=== PATIENT | male | born 1930 | race Caucasian/White ===

== ENCOUNTER → 2017-08-01 | Outpatient (CLI) | payer MEDICARE ==
[2015-01-30 23:50] VITALS: BP 158/84
[~2017-08-01] MED LIST: ALBU8.5H8 INH; ASPI-482 PO; CINN1CAP2 PO; CLOP75TA PO; CYCL-331 PO; HYDR-2762 PO; IOHEXOL 300 MG/ML 75 ML VIAL. IV ONE; LISI-334 PO; METO25TA2 PO; MULT1TAB52 PO; OMEG10006 PO; OMEP40CA5 PO; TAMS0.4C2 PO; WARF-31 PO
--- NOTE | 2017-08-01 17:03 | RAD ---
PQRS Compliance Statement: One or more of the following individualized dose reduction techniques were utilized for this examination: 1. Automated exposure control 2. Adjustment of the mA and/or kV according to patient size 3. Use of iterative reconstruction technique CT HEAD WITHOUT CONTRAST History: CHRONIC HEADACHE WITH PRESSURE, HX OF STROKE< Comparison: CT head without contrast, March 11, 2012. Technique: Axial images are obtained of the head from the skull base through the vertex before and after 75 cc of Omnipaque 300 IV contrast. Findings: No mass-effect, midline shift, extra-axial fluid collection, hemorrhage, or obvious acute infarction is identified. Basilar cisterns are patent. The ventricles and sulci are prominent, consistent with age-related cerebral atrophy. There is periventricular white matter hypoattenuation. This is a nonspecific finding but is commonly due to chronic small vessel ischemic disease. No abnormal enhancement in the brain parenchyma is seen. Atherosclerotic calcification of the cavernous internal carotid arteries bilaterally. Bone windows demonstrate no acute calvarial abnormality. The visualized paranasal sinuses are clear. Mastoid air cells are well aerated. IMPRESSION: 1. No acute intracranial abnormality. 2. Age-related cerebral atrophy and periventricular white matter changes of chronic small vessel ischemic disease. Electronically signed by: Brandon Vazquez MD (08/01/2017 4:59 PM) [id number]
== END | disposition home or self-care (01) ==
LOC: CT 08:16
PROVIDERS: ATTEND Internal Medicine
DX: G31.89 Other specified degenerative diseases of nervous system (principal); M54.2 Cervicalgia; I10 Essential (primary) hypertension; Z79.01 Long term (current) use of anticoagulants
CPT/HCPCS: 36415; 70470; 82565; 84520; Q9967

== ENCOUNTER → 2017-08-25 | Outpatient (CLI) | payer MEDICARE ==
[2015-01-30 23:50] VITALS: BP 158/84
[~2017-08-25] MED LIST changes: -IOHEXOL 300 MG/ML 75 ML VIAL. IV ONE
--- NOTE | 2017-08-25 11:31 | RAD ---
Indication: Headache and neck pain. Technique: Axial images and coronal and sagittal reformatted images are provided. No comparison is available. One or more of the following individualized dose reduction techniques were utilized for this examination: 1. Automated exposure control 2. Adjustment of the mA and/or kV according to patient size 3. Use of iterative reconstruction technique Findings: There is anterolisthesis at C4-C5 measuring 2 mm. There is otherwise no malalignment. There is no fracture. Craniovertebral junction is unremarkable. There are degenerative changes in the articulation between the C1 ring and dens with a few erosions in the dens noted as well. There is pannus along the dens. There are carotid artery calcifications. There are subcentimeter presumed reactive lymph nodes along the cervical chains. Pacemaker is noted. Lung apices are clear. Canal and foraminal contents could be better evaluated by postmyelogram CT, they will be estimated below: C2-C3: Facet hypertrophy and uncinate process spurring are noted with moderate to severe left and [id number] right foraminal narrowing. C3-C4: Disc osteophyte complex and uncinate process spurring are noted along with buckling of ligamentum flavum and facet hypertrophy. There is at least mild canal stenosis. There is probably moderate foraminal narrowing. C4-C5: There is a disc osteophyte complex, uncinate process spurring, buckling of ligamentum flavum, and facet hypertrophy. Facet hypertrophy is greater on the right. There is probably mild canal stenosis. There is at least mild left and moderate right foraminal narrowing. C5-C6: There is a disc osteophyte complex and uncinate process spurring. There is facet hypertrophy which is greater on the left. There is no canal stenosis. There is probably moderate foraminal narrowing bilaterally. C6-C7: There is a disc osteophyte complex and uncinate process spurring. There is at least mild to moderate bilateral foraminal narrowing and there is likely effacement of the ventral CSF column, there may be mild canal stenosis. C7-T1: There is no high-grade canal or foraminal compromise. IMPRESSION: There are degenerative changes noted throughout the cervical spine with several levels of canal and foraminal compromise suspected, with estimates provided above. If further workup is required, consider post myelogram CT in this patient with pacemaker. Electronically signed by: Orestes Lopez MD (08/25/2017 11:27 AM) [id number]
== END | disposition home or self-care (01) ==
LOC: CT 10:43
PROVIDERS: ATTEND Internal Medicine
DX: M48.02 Spinal stenosis, cervical region (principal); M25.78 Osteophyte, vertebrae; I10 Essential (primary) hypertension; Z79.01 Long term (current) use of anticoagulants; Z95.0 Presence of cardiac pacemaker
CPT/HCPCS: 72125

== ENCOUNTER 2017-12-07 04:29 | Emergency (ER) | payer MEDICARE ==
[~2017-12-07] VITALS: Ht 170.2 cm; Wt 86.8 kg
[2017-12-07] MEDS ORDERED: ONDANSETRON PF 4 MG/2 ML VIAL. ONE (05:11)
[2017-12-07] MEDS ORDERED: ONDANSETRON PF 4 MG/2 ML VIAL. IV ONE (05:30)
[2017-12-07 05:37] LABS: BASO % 1 % (0-3); EOS # 0.2 x10^3/uL (0.0-0.7); EOS % 3 % (0-3); HEMATOCRIT 43.6 % (39.0-53.0); HEMOGLOBIN 14.9 g/dL (13.0-17.5); LYMPH # 1.4 x10^3/uL (1.0-4.8); LYMPH % 27 % (24-48); MEAN CORPUSCULAR HEMOGLOBIN 33 pg (25-35); MEAN CORPUSCULAR HGB CONC 34 g/dL (31-37); MEAN CORPUSCULAR VOLUME 98 fL (79-100); MONO # 0.5 x10^3/uL (0.0-1.1); MONO % 9 % (0-9); NEUT # 3.1 x10^3uL (1.8-7.7); NEUT % 60 % (31-73); PLATELET COUNT 166 x10^3/uL (140-400); RED BLOOD COUNT 4.47 x10^6/uL (4.30-5.70); RED CELL DISTRIBUTION WIDTH 14.2 % (11.5-14.5); WHITE BLOOD COUNT 5.1 x10^3/uL (4.0-11.0)
--- NOTE | 2017-12-07 06:03 | PHYS DOC ---
Past History Past Medical History: A-Fib, GERD, High Cholesterol, Hypertension, Prostatitis Past Surgical History: Knee Replacement Alcohol Use: Occasionally Drug Use: None Adult General Chief Complaint Chief Complaint: MECHANICAL FALL HPI HPI 87-year-old male presents via EMS with report of fall forward striking his head on the door frame while getting up to use the restroom just prior to arrival. Patient does report use of Coumadin. Reports significant swelling to right side of his scalp at site of blunt trauma. Reports pain to area. Denies loss of consciousness. Denies nausea or vomiting. Patient does also report some neck pain. Patient was ambulatory and ended up walking out to the ambulance to meet EMS crew upon their arrival. Denies other injury. Review of Systems Review of Systems Constitutional: Denies fever or chills [] Eyes: Denies change in visual acuity, redness, or eye pain [] HENT: Denies nasal congestion or epistaxis Respiratory: Denies cough or shortness of breath [] Cardiovascular: Denies chest pain or syncope GI: Denies nausea, vomiting Musculoskeletal: Denies back pain or joint pain ; reports neck pain Integument: Denies laceration; reports bruising and swelling Neurologic: Reports headache; denies focal weakness or sensory changes [] Complete systems were reviewed and found to be within normal limits, except as documented in this note. Current Medications Current Medications Current Medications Medications (Trade) Dose Ordered Sig/Shana Start Time Stop Time Status Last Admin Dose Admin Fentanyl Citrate (Fentanyl 2ml Vial) 50 mcg 1X ONCE 12/07/17 05:00 12/07/17 05:01 DC 12/07/17 05:09 50 MCG Ondansetron HCl (Zofran) 4 mg 1X ONCE 12/07/17 05:30 12/07/17 05:31 DC Allergies Allergies Allergies Coded Allergies Type Severity Reaction Last Updated Verified naproxen Allergy Unknown 12/07/17 No influenza virus vaccine, specific Adverse Reaction Intermediate 12/07/17 Yes Physical Exam Physical Exam Constitutional: Well developed, well nourished, no acute distress, non-toxic appearance. [] HENT: Right forehead hematoma noted, no laceration, oropharynx moist Eyes: PERRL, EOMI, conjunctiva normal, no nystagmus Neck: C-collar in place, upper midline tenderness noted, supple Cardiovascular: Heart rate regular rhythm, CR < 2 sec Lungs & Thorax: Bilateral breath sounds clear to auscultation [] Abdomen: Soft, no tenderness, no masses, no pulsatile masses. [] Skin: Warm, dry, no erythema, right forehead swelling/hematoma Back: No midline tenderness, no CVA tenderness. [] Extremities: No tenderness, ROM intact, no edema. [] Neurologic: Alert and oriented X 3, normal motor function, normal sensory function, no focal deficits noted. [] Psychologic: Affect normal, judgement normal, mood normal. [] Current Patient Data Lab Results Laboratory Tests Test 12/07/17 05:15 White Blood Count 5.1 x10^3/uL (4.0-11.0) Red Blood Count 4.47 x10^6/uL (4.30-5.70) Hemoglobin 14.9 g/dL (13.0-17.5) Hematocrit 43.6 % (39.0-53.0) Mean Corpuscular Volume 98 fL (79-100) Mean Corpuscular Hemoglobin 33 pg (25-35) Mean Corpuscular Hemoglobin Concent 34 g/dL (31-37) Red Cell Distribution Width 14.2 % (11.5-14.5) Platelet Count 166 x10^3/uL (140-400) Neutrophils (%) (Auto) 60 % (31-73) Lymphocytes (%) (Auto) 27 % (24-48) Monocytes (%) (Auto) 9 % (0-9) Eosinophils (%) (Auto) 3 % (0-3) Basophils (%) (Auto) 1 % (0-3) Neutrophils # (Auto) 3.1 x10^3uL (1.8-7.7) Lymphocytes # (Auto) 1.4 x10^3/uL (1.0-4.8) Monocytes # (Auto) 0.5 x10^3/uL (0.0-1.1) Eosinophils # (Auto) 0.2 x10^3/uL (0.0-0.7) Basophils # (Auto) 0.0 x10^3/uL (0.0-0.2) Prothrombin Time 36.3 SEC (9.4-11.4) H Prothrombin Time INR 3.9 (0.9-1.1) H PTT 38 SEC (23-33) H EKG EKG [] Radiology/Procedures Radiology/Procedures [PROCEDURE: CT HEAD AND CERVICAL SPINE WO CT head without contrast. CT cervical spine without contrast TECHNIQUE: Noncontrast CT imaging of the head and cervical spine with multiplanar reconstructions. COMPARISON: CT head August 01, [address] cervical spine August 25, 2017. HISTORY: Fall, right scalp hematoma, pain. CT head findings: No intracranial hemorrhage, mass, hydrocephalus or infarction. Generalized brain atrophy is stable. Cerebral white matter hypoattenuation consistent with chronic microvascular ischemic injury, stable. 3 cm in thickness acute hyperdense right frontal parietal scalp hematoma. No skull fracture. Skull base intact. Acute traumatic nasal bone fractures. Small volume of fluid within the right maxillary sinus. Orbits and mastoids are unremarkable. IMPRESSION: No acute intracranial CT abnormality. 3 cm thickness right frontal parietal scalp acute hematoma. No skull fracture. Nasal bone fractures. CT cervical spine findings: Precervical junction intact. There is an acute traumatic nondisplaced transverse oriented type II C2 odontoid fracture. 1 mm anterolisthesis of C2 and C3 associated with disc disease and facet arthritis. No distracted fracture of the cervical spine. The lung apices and paraspinal tissues are unremarkable. Cervical scoliosis, disc height loss with disc osteophytes and uncovertebral and facet spurs with spinal canal and neural foraminal stenoses at several levels. Dorsal paraspinal subcutaneous edema likely contusion. IMPRESSION: Acute traumatic nondisplaced type II C2 odontoid fracture. Cervical disc disease. See discussion above.] Course & Med Decision Making Course & Med Decision Making Pertinent Labs and Imaging studies reviewed. (See chart for details) Elderly patient presents with report of mechanical trip forward striking his forehead with subsequent hematoma. Patient also complains of neck pain. C- collar placed by EMS and maintained. Patient does use Coumadin. INR supratherapeutic at 3.9. H&H stable. Patient neurologically intact. Pain addressed. CT head/cervical spine pending. Sign out given to Dr. Gutierrez for further evaluation and final disposition. Discussed current findings and plan with patient and family, who acknowledge understanding and agreement. 7:00 AM: Patient care was assumed from Dr. Montano. Patient reported a mechanical fall and struck his head and also is having neck pain. CT scan reveals a large epidural hemorrhage, with a type II odontoid fracture. The patient is in a cervical collar, although it did not fit very well. He was changed to a [place] type collar, which is better fitting. I spoke to the trauma surgeon at , Dr. Ricketts, who accepted the patient. He requested that the patient's INR be reversed, although the optimal agent, PCC, is not available at this facility. The reason for reversal to prevent potential development of an epidural hemorrhage associated with the C2 fracture. Due to the delay inherent in obtaining an administering FFP, we discussed that the optimal plan of care for the patient would be to administer vitamin K, 10 mg will be given IV, and the patient will be emergently transferred to the ICU at . I discussed findings with the patient and his family and they are agreeable to transfer. CRITICAL CARE TIME: 45 Minutes, excluding any procedures and care of other patients. Dragon Disclaimer Dragon Disclaimer This electronic medical record was generated, in whole or in part, using a voice recognition dictation system. Departure Departure: Impression: Primary Impression: Odontoid fracture with type II morphology Additional Impressions: Scalp hematoma Supratherapeutic INR Plantar fasciitis Disposition: 02 XFER SHT-TRM HOSP () Condition: GUARDED Referrals: UMBERTO LIANG MD (PCP) Problem Qualifiers Additional Impressions: Scalp hematoma Encounter type: initial encounter Qualified Codes: S00.03XA - Contusion of scalp, initial encounter MARILYN MONTANO DO Dec 07, 2017 06:03 JOSÉ MIGUEL GUTIERREZ MD Dec 07, 2017 07:03
[2017-12-07] MEDS ORDERED: ORPHENADRINE CITRATE 60 MG/2 ML VIAL. IV ONE (06:30)
--- NOTE | 2017-12-07 06:36 | RAD ---
CT head without contrast. CT cervical spine without contrast TECHNIQUE: Noncontrast CT imaging of the head and cervical spine with multiplanar reconstructions. COMPARISON: CT head August 01, [address] cervical spine August 25, 2017. HISTORY: Fall, right scalp hematoma, pain. CT head findings: No intracranial hemorrhage, mass, hydrocephalus or infarction. Generalized brain atrophy is stable. Cerebral white matter hypoattenuation consistent with chronic microvascular ischemic injury, stable. 3 cm in thickness acute hyperdense right frontal parietal scalp hematoma. No skull fracture. Skull base intact. Acute traumatic nasal bone fractures. Small volume of fluid within the right maxillary sinus. Orbits and mastoids are unremarkable. IMPRESSION: No acute intracranial CT abnormality. 3 cm thickness right frontal parietal scalp acute hematoma. No skull fracture. Nasal bone fractures. CT cervical spine findings: Precervical junction intact. There is an acute traumatic nondisplaced transverse oriented type II C2 odontoid fracture. 1 mm anterolisthesis of C2 and C3 associated with disc disease and facet arthritis. No distracted fracture of the cervical spine. The lung apices and paraspinal tissues are unremarkable. Cervical scoliosis, disc height loss with disc osteophytes and uncovertebral and facet spurs with spinal canal and neural foraminal stenoses at several levels. Dorsal paraspinal subcutaneous edema likely contusion. IMPRESSION: Acute traumatic nondisplaced type II C2 odontoid fracture. Cervical disc disease. See discussion above. Critical results called to Dr. Gutierrez at 6:30 AM December 07, 2017. Exposure: One or more of the following individualized dose reduction techniques were utilized for this examination: 1. Automated exposure control 2. Adjustment of the mA and/or kV according to patient size 3. Use of iterative reconstruction technique Electronically signed by: Jordi Stewart MD (12/07/2017 6:33 AM) [id number]
[2017-12-07] MEDS ORDERED: PHYTONADIONE 10 MG/ML AMPUL. ONE (06:59)
[2017-12-07 07:00] VITALS: BP 142/103
[2017-12-07] MEDS ORDERED: PHYTONADIONE for IVPB 5 MG in IV NORMAL SALINE 50ML 50 ML IV ONE ×4 (07:00)
[2017-12-07] MEDS ORDERED: [UNRECOGNIZED DRUG - OTHER] IV ONE (07:07)
[2017-12-07] MEDS ORDERED: NORMAL SALINE IV ONE (07:07)
[2017-12-07] MEDS ORDERED: IV NORMAL SALINE 50ML 50 ML ONE (07:08)
== END 2017-12-07 07:39 | disposition short-term general hospital (02) ==
LOC: ER 04:29
DX: S12.112A Nondisplaced Type II dens fracture, initial encounter for closed fracture (principal); S00.83XA Contusion of other part of head, initial encounter; M72.2 Plantar fascial fibromatosis; R79.1 Abnormal coagulation profile; I48.91 Unspecified atrial fibrillation; K21.9 Gastro-esophageal reflux disease without esophagitis; E78.00 Pure hypercholesterolemia, unspecified; I10 Essential (primary) hypertension; Z88.7 Allergy status to serum and vaccine; Z88.8 Allergy status to other drugs, medicaments and biological substances; W18.09XA Striking against other object with subsequent fall, initial encounter; Y93.89 Activity, other specified; Y92.89 Other specified places as the place of occurrence of the external cause; Y99.8 Other external cause status
CPT/HCPCS: 36415; 70450; 72125; 85025; 85610; 85730; 96365; 96375; 99285; J2360; J2405; J3010; J3430

== ENCOUNTER 2018-02-12 10:18 | Emergency (ER) | payer MEDICARE ==
[~2018-02-12] VITALS: Ht 170.2 cm; Wt 86.8 kg
[2018-02-12 11:12] LABS: BASO % 1 % (0-3); EOS # 0.1 x10^3/uL (0.0-0.7); EOS % 2 % (0-3); HEMATOCRIT 42.5 % (39.0-53.0); HEMOGLOBIN 14.3 g/dL (13.0-17.5); LYMPH # 1.1 x10^3/uL (1.0-4.8); LYMPH % 16 % (24-48); MEAN CORPUSCULAR HEMOGLOBIN 33 pg (25-35); MEAN CORPUSCULAR HGB CONC 34 g/dL (31-37); MEAN CORPUSCULAR VOLUME 97 fL (79-100); MONO # 0.8 x10^3/uL (0.0-1.1); MONO % 11 % (0-9); NEUT # 5.1 x10^3uL (1.8-7.7); NEUT % 71 % (31-73); PLATELET COUNT 168 x10^3/uL (140-400); RED BLOOD COUNT 4.37 x10^6/uL (4.30-5.70); RED CELL DISTRIBUTION WIDTH 14.4 % (11.5-14.5); WHITE BLOOD COUNT 7.1 x10^3/uL (4.0-11.0)
[2018-02-12 11:25] LABS: ALBUMIN 3.3 g/dL (3.4-5.0); ALBUMIN/GLOBULIN RATIO 1.1 (1.0-1.7); CALCIUM 8.5 mg/dL (8.5-10.1); CREATININE 0.9 mg/dL (0.7-1.3); POTASSIUM 3.8 mmol/L (3.5-5.1); TOTAL BILIRUBIN 1.1 mg/dL (0.2-1.0); TOTAL PROTEIN 6.3 g/dL (6.4-8.2)
--- NOTE | 2018-02-12 11:32 | RAD ---
Examination: 3 views of the right shoulder HISTORY: History of fall, right shoulder pain COMPARISON: None available. Findings/ impression: The humerus head is within the glenoid. There is severe joint space loss identified in the glenohumeral joint and acromioclavicular joint likely severe degeneration. There is a bony density identified superior lateral to the right humerus head probably osteophyte and less likely fracture fragment. Faint lucency identified in the distal clavicle could be due to degeneration or fracture. Recommend CT right shoulder for further evaluation. Electronically signed by: Mikhail Chun MD (02/12/2018 11:29 AM) [place] [id number]
--- NOTE | 2018-02-12 11:34 | RAD ---
CT of the head without contrast, 02/12/2018: HISTORY: Fall Comparison is made to a study from 12/07/2017. There is moderate cerebral and mild cerebellar atrophy. There are moderate patchy lucencies in the deep white matter bilaterally compatible with small vessel chronic ischemic change. The ventricles are dilated on a compensatory basis. There is no evidence of acute intracranial hemorrhage or mass effect. There is calcific plaquing of the distal internal carotid and vertebral arteries. There is soft tissue edema in the right cheek region suggesting a recent contusion. There is a small density posteriorly in the right maxillary sinus which may represent hemorrhage or inflammatory fluid. The bone windows show no evidence of a recent fracture. IMPRESSION: 1. Cerebral atrophy. 2. Moderate chronic ischemic change in the deep white matter bilaterally. 3. No acute intracranial abnormality is detected. CT of the cervical spine without contrast, 02/12/2018: Noncontrast scans were obtained with multiplanar reconstructions produced. There is a mild left convexity cervical scoliosis. There is disc space narrowing with moderate marginal spurring at multiple levels in the mid and lower cervical spine. There are extensive degenerative changes involving multiple facet joints bilaterally. There is mild anterolisthesis at C4-5 and to a lesser degree at C3-4 which appears to be due to facet joint arthropathy. No high-grade central spinal stenosis is evident. There is moderate foraminal narrowing at several levels bilaterally. There is a transverse fracture at the base of the odontoid process. This was also evident on the previous study of 12/07/2017, however, there has been some interval bony resorption at the fracture site with widening of the fracture line. The odontoid is not significantly displaced. There are moderate underlying degenerative changes at the C1-2 articulation with calcific thickening of the ligament along the posterior aspect of the odontoid process. No new fracture is identified. IMPRESSION: 1. Moderate to severe multilevel degenerative change. 2. Mild anterolisthesis at C3-4 and C4-5 due to facet joint arthropathy. 3. Old nondisplaced fracture at the base of the odontoid process as described above. Electronically signed by: Bharathi Perez MD (02/12/2018 11:31 AM) [facility]
--- NOTE | 2018-02-12 11:47 | RAD ---
Right hand, 3 views, 02/12/2018: HISTORY: Fall The fingers are held in flexion, compromising the study. The bony structures are demineralized. There are moderate degenerative changes at the hand and wrist with scattered periarticular calcifications. No acute fracture or dislocation is identified. Extensive arterial calcifications are present. IMPRESSION: 1. Demineralization. 2. Moderate scattered degenerative changes. 3. No acute bony abnormality is detected. Electronically signed by: Bharathi Perez MD (02/12/2018 11:43 AM) [facility]
--- NOTE | 2018-02-12 11:50 | RAD ---
Portable chest, 02/12/2018: History: Fall Comparison is made to a study from 08/11/2012. A left-sided transvenous pacemaker has been placed with 2 leads extending into the right heart. The heart size is normal. There is calcific plaquing of the aorta. No pulmonary infiltrate is seen. There is no evidence of pneumothorax or pleural fluid. Scattered degenerative changes are present in the spine. There is deformity of the right fifth rib due to an old fracture. IMPRESSION: No acute cardiopulmonary abnormality is detected.
--- NOTE | 2018-02-12 12:07 | PHYS DOC ---
Past History Past Medical History: A-Fib, GERD, High Cholesterol, Hypertension, Prostatitis Past Surgical History: Knee Replacement, Pacemaker, Other Alcohol Use: Occasionally Drug Use: None Adult General Chief Complaint Chief Complaint: MULTIPLE TRAUMA/FALL [facility] HPI 88-year-old male presents via private vehicle after fall at home. The patient was cleaning debris off of his porch with his cane when he tripped over a hose and fell against a flowerpot and onto the concrete porch. The patient has pain in his right hand, right shoulder, and right face. This all occurred yesterday evening. The patient did not want to come into the emergency room last night. He is already in a cervical collar due to a cervical fracture from a fall in his bathroom in December. Patient states that the bruising on the right side of his face is new. He denies being knocked unconscious. The patient has had several falls lately according to the patient and his .. He uses a cane and a walker. He denies passing out. He denies fever or chills. Review of Systems Review of Systems Constitutional: Denies fever or chills [] Eyes: Denies change in visual acuity, redness, or eye pain [] HENT: Facial pain[] Respiratory: Denies cough or shortness of breath [] Cardiovascular: No additional information not addressed in HPI [] GI: Denies abdominal pain, nausea, vomiting, bloody stools or diarrhea [] : Denies dysuria or hematuria [] Musculoskeletal: Right shoulder pain, right hand pain[] Integument: Denies rash or skin lesions [] Neurologic: Headache,. No focal weakness or sensory changes [] Endocrine: Denies polyuria or polydipsia [] All other systems were reviewed and found to be within normal limits, except as documented in this note. Allergies Allergies Allergies Coded Allergies Type Severity Reaction Last Updated Verified naproxen Allergy Unknown 12/07/17 No influenza virus vaccine, specific Adverse Reaction Intermediate 12/07/17 Yes Physical Exam Physical Exam Constitutional: Well developed, well nourished, no acute distress, non-toxic appearance. [] HENT: Bruising to the right side of the face. No facial tenderness with palpation.[] Eyes: PERRLA, EOMI, conjunctiva normal, no discharge. [] Neck: In a cervical collar[] Cardiovascular:Heart rate regular rhythm, no murmur [] Lungs & Thorax: Bilateral breath sounds clear to auscultation [] Abdomen: Bowel sounds normal, soft, no tenderness, no masses, no pulsatile masses. [] Skin: Multiple bruises[] Back: No tenderness, no CVA tenderness. [] Extremities: Posterior right hand tenderness, limited exam of the right shoulder due to pain. No obvious deformity.[] Neurologic: Alert and oriented X 3, normal motor function, normal sensory function, no focal deficits noted. [] Psychologic: Affect normal, judgement normal, mood normal. [] Current Patient Data Vital Signs Vital Signs Date Time Temp Pulse Resp B/P (MAP) Pulse Ox O2 Delivery O2 Flow Rate FiO2 02/12/18 10:47 97.9 64 20 96 Room Air Lab Results Laboratory Tests Test 02/12/18 10:59 White Blood Count 7.1 x10^3/uL (4.0-11.0) Red Blood Count 4.37 x10^6/uL (4.30-5.70) Hemoglobin 14.3 g/dL (13.0-17.5) Hematocrit 42.5 % (39.0-53.0) Mean Corpuscular Volume 97 fL (79-100) Mean Corpuscular Hemoglobin 33 pg (25-35) Mean Corpuscular Hemoglobin Concent 34 g/dL (31-37) Red Cell Distribution Width 14.4 % (11.5-14.5) Platelet Count 168 x10^3/uL (140-400) Neutrophils (%) (Auto) 71 % (31-73) Lymphocytes (%) (Auto) 16 % (24-48) L Monocytes (%) (Auto) 11 % (0-9) H Eosinophils (%) (Auto) 2 % (0-3) Basophils (%) (Auto) 1 % (0-3) Neutrophils # (Auto) 5.1 x10^3uL (1.8-7.7) Lymphocytes # (Auto) 1.1 x10^3/uL (1.0-4.8) Monocytes # (Auto) 0.8 x10^3/uL (0.0-1.1) Eosinophils # (Auto) 0.1 x10^3/uL (0.0-0.7) Basophils # (Auto) 0.0 x10^3/uL (0.0-0.2) Sodium Level 137 mmol/L (136-145) Potassium Level 3.8 mmol/L (3.5-5.1) Chloride Level 101 mmol/L (98-107) Carbon Dioxide Level 32 mmol/L (21-32) Anion Gap 4 (6-14) L Blood Urea Nitrogen 11 mg/dL (8-26) Creatinine 0.9 mg/dL (0.7-1.3) Estimated GFR (Cockcroft-Gault) 80.0 BUN/Creatinine Ratio 12 (6-20) Glucose Level 106 mg/dL (70-99) H Calcium Level 8.5 mg/dL (8.5-10.1) Total Bilirubin 1.1 mg/dL (0.2-1.0) H Aspartate Amino Transferase (AST) 25 U/L (15-37) Alanine Aminotransferase (ALT) 22 U/L (16-63) Alkaline Phosphatase 80 U/L (46-116) Total Protein 6.3 g/dL (6.4-8.2) L Albumin 3.3 g/dL (3.4-5.0) L Albumin/Globulin Ratio 1.1 (1.0-1.7) EKG EKG [] Radiology/Procedures Radiology/Procedures [] Impressions: Portable chest, 02/12/2018: History: Fall Comparison is made to a study from 08/11/2012. A left-sided transvenous pacemaker has been placed with 2 leads extending into the right heart. The heart size is normal. There is calcific plaquing of the aorta. No pulmonary infiltrate is seen. There is no evidence of pneumothorax or pleural fluid. Scattered degenerative changes are present in the spine. There is deformity of the right fifth rib due to an old fracture. IMPRESSION: No acute cardiopulmonary abnormality is detected. DICTATED AND SIGNED BY: BHARATHI PEREZ MD DATE: 02/12/18 [id number] CC: UMBERTO LIANG MD; TREMAINE LOPEZ DO ~ Right hand, 3 views, 02/12/2018: HISTORY: Fall The fingers are held in flexion, compromising the study. The bony structures are demineralized. There are moderate degenerative changes at the hand and wrist with scattered periarticular calcifications. No acute fracture or dislocation is identified. Extensive arterial calcifications are present. IMPRESSION: 1. Demineralization. 2. Moderate scattered degenerative changes. 3. No acute bony abnormality is detected. Electronically signed by: Bharathi Perez MD (02/12/2018 11:43 AM) [facility] DICTATED AND SIGNED BY: BHARATHI PEREZ MD DATE: 02/12/18 1141 CC: UMBERTO LIANG MD; TREMAINE LOPEZ DO Examination: 3 views of the right shoulder HISTORY: History of fall, right shoulder pain COMPARISON: None available. Findings/ impression: The humerus head is within the glenoid. There is severe joint space loss identified in the glenohumeral joint and acromioclavicular joint likely severe degeneration. There is a bony density identified superior lateral to the right humerus head probably osteophyte and less likely fracture fragment. Faint lucency identified in the distal clavicle could be due to degeneration or fracture. Recommend CT right shoulder for further evaluation. Electronically signed by: Mikhail Mclaughlin MD (02/12/2018 11:29 AM) [place] [id number] DICTATED AND SIGNED BY: MIKHAIL MCLAUGHLIN MD DATE: 02/12/18 1125 CC: UMBERTO LIANG MD; TREMAINE LOPEZ DO CT of the head without contrast, 02/12/2018: HISTORY: Fall Comparison is made to a study from 12/07/2017. There is moderate cerebral and mild cerebellar atrophy. There are moderate patchy lucencies in the deep white matter bilaterally compatible with small vessel chronic ischemic change. The ventricles are dilated on a compensatory basis. There is no evidence of acute intracranial hemorrhage or mass effect. There is calcific plaquing of the distal internal carotid and vertebral arteries. There is soft tissue edema in the right cheek region suggesting a recent contusion. There is a small density posteriorly in the right maxillary sinus which may represent hemorrhage or inflammatory fluid. The bone windows show no evidence of a recent fracture. IMPRESSION: 1. Cerebral atrophy. 2. Moderate chronic ischemic change in the deep white matter bilaterally. 3. No acute intracranial abnormality is detected. CT of the cervical spine without contrast, 02/12/2018: Noncontrast scans were obtained with multiplanar reconstructions produced. There is a mild left convexity cervical scoliosis. There is disc space narrowing with moderate marginal spurring at multiple levels in the mid and lower cervical spine. There are extensive degenerative changes involving multiple facet joints bilaterally. There is mild anterolisthesis at C4-5 and to a lesser degree at C3-4 which appears to be due to facet joint arthropathy. No high-grade central spinal stenosis is evident. There is moderate foraminal narrowing at several levels bilaterally. There is a transverse fracture at the base of the odontoid process. This was also evident on the previous study of 12/07/2017, however, there has been some interval bony resorption at the fracture site with widening of the fracture line. The odontoid is not significantly displaced. There are moderate underlying degenerative changes at the C1-2 articulation with calcific thickening of the ligament along the posterior aspect of the odontoid process. No new fracture is identified. IMPRESSION: 1. Moderate to severe multilevel degenerative change. 2. Mild anterolisthesis at C3-4 and C4-5 due to facet joint arthropathy. 3. Old nondisplaced fracture at the base of the odontoid process as described above. Electronically signed by: Bharathi Perez MD (02/12/2018 11:31 AM) [facility] DICTATED AND SIGNED BY: BHARATHI PEREZ MD DATE: 02/12/18 [id number] CC: UMBERTO LIANG MD; TREMAINE LOPEZ DO Examination: CT right shoulder without contrast HISTORY: History of fall, clavicle fracture COMPARISON: None available TECHNIQUE: Axial CT images of the right renal performed without contrast. Coronal and sagittal reformats are performed Exposure: One or more of the following individualized dose reduction techniques were utilized for this examination: 1. Automated exposure control 2. Adjustment of the mA and/or kV according to patient size 3. Use of iterative reconstruction technique FINDINGS: The humerus head is within the glenoid. There is severe joint space loss identified in the glenohumeral joint and the acromioclavicular joint. Small inferior osteophyte formation identified in the distal clavicle at the acromioclavicular joint. There is no obvious acute fracture or dislocation identified. There is mild capsular calcification identified. The right apical lung is clear. IMPRESSION: Severe degenerative changes glenohumeral joint and acromioclavicular joint. No acute osseous findings. Electronically signed by: Mikhail Mclaughlin MD (02/12/2018 12:44 PM) [place] [id number] Course & Med Decision Making Course & Med Decision Making Pertinent Labs and Imaging studies reviewed. (See chart for details) The patient fell yesterday, but did not want to come into the emergency room until today. The patient's imaging did not show any new fractures. See official radiology reports for more details. The patient is tolerating the pain well. He has only requested Tylenol for pain. I do not have reason to admit the patient. His family is willing to take him home and provide support as needed. He is in his right mind able to make decisions and show no evidence of impaired decision making capacity. He would like to go home. He is stable for discharge at this time. I have stressed to him and his family the importance of using his walker and eliminating his risk of falls as much as possible. [] Dragon Disclaimer Dragon Disclaimer This electronic medical record was generated, in whole or in part, using a voice recognition dictation system. Departure Departure: Referrals: UMBERTO LIANG MD (PCP) TREMAINE LOPEZ DO Feb 12, 2018 12:07
[2018-02-12] MEDS ORDERED: ACETAMINOPHEN 325 MG TABLET PO ONE (12:15)
--- NOTE | 2018-02-12 12:47 | RAD ---
Examination: CT right shoulder without contrast HISTORY: History of fall, clavicle fracture COMPARISON: None available TECHNIQUE: Axial CT images of the right renal performed without contrast. Coronal and sagittal reformats are performed Exposure: One or more of the following individualized dose reduction techniques were utilized for this examination: 1. Automated exposure control 2. Adjustment of the mA and/or kV according to patient size 3. Use of iterative reconstruction technique FINDINGS: The humerus head is within the glenoid. There is severe joint space loss identified in the glenohumeral joint and the acromioclavicular joint. Small inferior osteophyte formation identified in the distal clavicle at the acromioclavicular joint. There is no obvious acute fracture or dislocation identified. There is mild capsular calcification identified. The right apical lung is clear. IMPRESSION: Severe degenerative changes glenohumeral joint and acromioclavicular joint. No acute osseous findings. Electronically signed by: Mikhail Chun MD (02/12/2018 12:44 PM) [place] [id number]
[2018-02-12 13:07] VITALS: BP 155/60
== END 2018-02-12 13:27 | disposition home or self-care (01) ==
LOC: ER 10:18
DX: S00.83XA Contusion of other part of head, initial encounter (principal); M25.511 Pain in right shoulder; I48.91 Unspecified atrial fibrillation; K21.9 Gastro-esophageal reflux disease without esophagitis; E78.00 Pure hypercholesterolemia, unspecified; I10 Essential (primary) hypertension; Z95.0 Presence of cardiac pacemaker; Z88.7 Allergy status to serum and vaccine; Z88.8 Allergy status to other drugs, medicaments and biological substances; W18.09XA Striking against other object with subsequent fall, initial encounter; Y93.E9 Activity, other interior property and clothing maintenance; Y92.098 Other place in other non-institutional residence as the place of occurrence of the external cause; Y99.8 Other external cause status
CPT/HCPCS: 36415; 70450; 71045; 72125; 73030; 73130; 73200; 80053; 85025; 99285

== ENCOUNTER → 2018-05-11 | Outpatient (CLI) | payer MEDICARE ==
[~2018-05-11] MED LIST changes: +ALBU2.5V8 INH; -ALBU8.5H8 INH; -HYDR-2762 PO; +HYDR-2765 PO
--- NOTE | 2018-05-11 09:32 | RAD ---
Examination: CT maxillofacial without contrast HISTORY: History of chronic sinusitis Comparison: None available TECHNIQUE: Axial CT images of the facial bones without contrast. Coronal and sagittal reformats are performed Exposure: One or more of the following individualized dose reduction techniques were utilized for this examination: 1. Automated exposure control 2. Adjustment of the mA and/or kV according to patient size 3. Use of iterative reconstruction technique FINDINGS: The visualized frontal sinuses, sphenoid sinuses, ethmoidal sinuses are clear. There is a small mucous retention cyst or polyp identified in the left maxillary sinus. There is mild mucosal thickening identified in the right maxillary sinus. The mastoid air cells are clear. The nasal septum is in the midline. IMPRESSION: 1. Small mucous retention cyst or polyp identified in the left maxillary sinus. Mild mucosal thickening identified in the right maxillary sinus. Electronically signed by: Mikhail Chun MD (05/11/2018 9:27 AM) [place] [id number]
== END | disposition home or self-care (01) ==
LOC: CT 08:31
PROVIDERS: ATTEND Family Medicine
DX: J32.8 Other chronic sinusitis (principal)
CPT/HCPCS: 70486

== ENCOUNTER → 2018-08-21 | Outpatient (CLI) | payer MEDICARE ==
--- NOTE | 2018-08-21 10:50 | RAD ---
CT of the chest without contrast, 08/21/2018: HISTORY: Left-sided pain Noncontrast scans were obtained as requested. Transvenous pacing leads extend into the right heart. There is moderate calcific plaquing of the thoracic aorta and its branches. There are moderate aortic valvular calcifications. There are moderate scattered coronary artery calcifications. A radiopacity in the LAD is likely a stent. There is mild dilatation of the proximal descending thoracic aorta which measures 3.6 cm in width. No mediastinal adenopathy is evident. There are a few scattered linear parenchymal scars in the lungs. There are thicker linear opacities in the left lower lobe suggesting discoid atelectasis. A tiny calcified granuloma is present in the left upper lobe. There is a 4 mm subpleural nodule in the posterior lateral aspect of the left lower lobe as seen on axial image 76 of series #2. It does not demonstrate definite calcification. There is no evidence of pleural fluid. A 3 cm left renal cyst is noted. There is a fracture of the anterolateral aspect of the left sixth rib. There is no associated callous suggesting that this is an acute or subacute fracture. Several old healed rib fractures are present laterally on the right. There is extensive hypertrophic degenerative change in the spine with bony bridging anteriorly at multiple levels. IMPRESSION: 1. Moderate calcific plaquing of the aorta and coronary arteries. 2. Slight dilatation of the proximal descending thoracic aorta. 3. Aortic valvular calcifications. 4. Moderate discoid atelectasis or scarring in the left lower lobe. 5. Tiny subpleural left lower lobe pulmonary nodule. Depending on the patient's risk factors, CT follow-up may be indicated. 6. Left sixth rib fracture which appears recent. PQRS Compliance Statement: One or more of the following individualized dose reduction techniques were utilized for this examination: 1. Automated exposure control 2. Adjustment of the mA and/or kV according to patient size 3. Use of iterative reconstruction technique Electronically signed by: Bharathi Perez MD (08/21/2018 10:47 AM) [facility]
== END | disposition home or self-care (01) ==
LOC: CT 09:23
PROVIDERS: ATTEND Family Medicine
DX: S22.32XA Fracture of one rib, left side, initial encounter for closed fracture (principal); I70.0 Atherosclerosis of aorta; I25.10 Atherosclerotic heart disease of native coronary artery without angina pectoris; R91.1 Solitary pulmonary nodule; I77.810 Thoracic aortic ectasia; J84.10 Pulmonary fibrosis, unspecified; N28.1 Cyst of kidney, acquired; M47.814 Spondylosis without myelopathy or radiculopathy, thoracic region; X58.XXXA Exposure to other specified factors, initial encounter; Y93.89 Activity, other specified; Y92.89 Other specified places as the place of occurrence of the external cause; Y99.8 Other external cause status
CPT/HCPCS: 71250

== ENCOUNTER → 2018-12-21 | Outpatient (CLI) | payer MEDICARE ==
--- NOTE | 2018-12-21 13:28 | RAD ---
CT HEAD WO CONTRAST Indication: Sudden left hemianopsia Exposure: One or more of the following individualized dose reduction techniques were utilized for this examination: 1. Automated exposure control 2. Adjustment of the mA and/or kV according to patient size 3. Use of iterative reconstruction technique. Technique: Standard imaging without intravenous contrast. Comparison: 02/12/2018 FINDINGS: Intracranial arterial calcifications. No acute intracranial hemorrhage, mass effect, midline shift or abnormal extra-axial fluid collection. Low-density in the white matter bilaterally, a nonspecific finding, but which is commonly due to chronic small vessel ischemic disease in a patient of this age. Prominence of ventricles and sulci compatible with atrophy. The visualized orbits are unremarkable. No significant scalp swelling. The partially visualized sinuses are essentially clear without fluid level. IMPRESSION: No evidence of acute intracranial hemorrhage. Chronic findings are redemonstrated. Electronically signed by: Kenny Cardoza MD (12/21/2018 1:25 PM) [id number]
== END | disposition home or self-care (01) ==
LOC: CT 12:27
PROVIDERS: ATTEND Family Medicine
DX: I67.2 Cerebral atherosclerosis (principal); H53.452 Other localized visual field defect, left eye
CPT/HCPCS: 70450

== ENCOUNTER 2019-11-03 12:12 | Inpatient (IN) | payer MEDICARE ==
[~2019-11-03] VITALS: Ht 167.6 cm; Wt 76.2 kg
[~2019-11-03 12:12] MED LIST changes: +MULT-445 PO; -MULT1TAB52 PO; +OMEP40CA45 PO; -OMEP40CA5 PO
--- NOTE | 2019-11-03 13:13 | RAD ---
AP chest. HISTORY: Short of breath AP view was taken of the chest. The heart is enlarged. There is a left pacemaker with atrial and ventricular pacing leads. There is atelectasis or infiltrates in both lower lobes. Upper lung zones are clear. There is an old right rib fracture. IMPRESSION: 1. Basilar atelectasis or infiltrates. Electronically signed by: Hollis Bull MD (11/03/2019 1:10 PM) [id number]
--- NOTE | 2019-11-03 13:18 | PHYS DOC ---
Past History Past Medical History: A-Fib, Asthma, COPD, Dementia, GERD, High Cholesterol Past Surgical History: Knee Replacement, Pacemaker, Other Alcohol Use: None Drug Use: None General Adult EDM: Chief Complaint: SHORTNESS OF BREATH HPI: HPI: 89-year-old male presents with worsening shortness of breath over the last few days. Patient has some shortness of breath at baseline because he has COPD. He only uses breathing treatments and is not on oxygen. He does not believe he has had a fever. His reports some mild dementia. He has no known COVID-19 exposures. Patient denies any chest pain or diaphoresis. He has no other complaints at this time. Review of Systems: Review of Systems: Constitutional: Denies fever or chills Eyes: Denies change in visual acuity HENT: Denies nasal congestion or sore throat Respiratory: shortness of breath Cardiovascular: Denies chest pain or edema GI: Denies abdominal pain, nausea, vomiting, bloody stools or diarrhea : Denies dysuria Musculoskeletal: Denies back pain or joint pain Integument: Denies rash Neurologic: Denies headache, focal weakness or sensory changes Endocrine: Denies polyuria or polydipsia Lymphatic: Denies swollen glands Psychiatric: Denies depression or anxiety Heart Score: Risk Factors: Risk Factors: DM, Current or recent (<one month) smoker, HTN, HLP, family history of CAD, obesity. Risk Scores: Score 0 - 3: 2.5% MACE over next 6 weeks - Discharge Home Score 4 - 6: 20.3% MACE over next 6 weeks - Admit for Clinical Observation Score 7 - 10: 72.7% MACE over next 6 weeks - Early Invasive Strategies Allergies: Allergies: Allergies Coded Allergies Type Severity Reaction Last Updated Verified naproxen Allergy Unknown 12/07/17 No influenza virus vaccine, specific Adverse Reaction Intermediate 12/07/17 Yes Physical Exam: PE: Constitutional: Well developed, well nourished, no acute distress, non-toxic appearance. [] HENT: Normocephalic, atraumatic, bilateral external ears normal, oropharynx moist, no oral exudates, nose normal. [] Eyes: PERRLA, EOMI, conjunctiva normal, no discharge. [] Neck: Normal range of motion, no tenderness, supple, no stridor. [] Cardiovascular: Heart rate regular rhythm, no murmur [] Lungs & Thorax: Bilateral breath sounds diminished with mild expiratory crackles at the left base [] Abdomen: Bowel sounds normal, soft, no tenderness, no masses, no pulsatile masses. [] Skin: Warm, dry, no erythema, no rash. [] Back: No tenderness, no CVA tenderness. [] Extremities: No tenderness, no cyanosis, no clubbing, ROM intact, no edema. [] Neurologic: Alert and oriented X 3, normal motor function, normal sensory function, no focal deficits noted. [] Psychologic: Affect normal, judgement normal, mood normal. [] Current Patient Data: Vital Signs: Vital Signs Date Time Temp Pulse Resp B/P (MAP) Pulse Ox O2 Delivery O2 Flow Rate FiO2 11/03/19 12:46 98.1 70 18 120/53 (75) 96 Room Air EKG: EKG: Sinus rhythm, rate 77, leftward axis, no ST elevations or depressions, slightly widened QRS at 124. [] Radiology/Procedures: Radiology/Procedures: [] Impressions: AP chest. HISTORY: Short of breath AP view was taken of the chest. The heart is enlarged. There is a left pacemaker with atrial and ventricular pacing leads. There is atelectasis or infiltrates in both lower lobes. Upper lung zones are clear. There is an old right rib fracture. IMPRESSION: 1. Basilar atelectasis or infiltrates. Electronically signed by: Hollis Bull MD (11/03/2019 1:10 PM) [id number] DICTATED AND SIGNED BY: HOLLIS BULL MD DATE: 11/03/19 1310 CC: UMBERTO LIANG MD; TREMAINE LOPEZ DO ~ Course & Med Decision Making: Course & Med Decision Making Pertinent Labs and Imaging studies reviewed. (See chart for details) Patient's labs are unremarkable. His chest x-ray suggestive of bilateral lower lobe pneumonia. I have treated him with 1 g of Rocephin and 500 of azithromycin by IV. I spoke with Dr. Dougherty and he has accepted the patient for admission. The patient is in agreement with this plan. [] Dragon Disclaimer: Dragon Disclaimer: This electronic medical record was generated, in whole or in part, using a voice recognition dictation system. Departure Departure: Impression: Primary Impression: Pneumonia of both lower lobes Qualified Codes: J18.9 - Pneumonia, unspecified organism Disposition: ADMITTED INPATIENT Admitting Physician: Steven Dougherty Condition: STABLE Referrals: UMBERTO LIANG MD (PCP) Justification of Admission: Justification of Admission: Justification of Admission Dx: Yes Comments: bilateral pneumonia TREMAINE LOPEZ DO Nov 03, 2019 13:18
--- NOTE | 2019-11-03 13:24 | EKG ---
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
[2019-11-03 14:20] LABS: BASO % 1 % (0-3); EOS # 0.1 x10^3/uL (0.0-0.7); EOS % 1 % (0-3); HEMATOCRIT 35.3 % (39.0-53.0); HEMOGLOBIN 11.7 g/dL (13.0-17.5); LYMPH % 15 % (24-48); MEAN CORPUSCULAR HEMOGLOBIN 34 pg (25-35); MEAN CORPUSCULAR HGB CONC 33 g/dL (31-37); MEAN CORPUSCULAR VOLUME 102 fL (79-100); MONO # 0.7 x10^3/uL (0.0-1.1); MONO % 10 % (0-9); NEUT % 73 % (31-73); PLATELET COUNT 196 x10^3/uL (140-400); RED BLOOD COUNT 3.48 x10^6/uL (4.30-5.70); RED CELL DISTRIBUTION WIDTH 15.4 % (11.5-14.5); WHITE BLOOD COUNT 6.8 x10^3/uL (4.0-11.0)
[2019-11-03 14:29] LABS: CALCIUM 8.5 mg/dL (8.5-10.1); CREATININE 1.1 mg/dL (0.7-1.3); GFR 63.3; POTASSIUM 3.7 mmol/L (3.5-5.1)
[2019-11-03 14:36] LABS: ALBUMIN 3.6 g/dL (3.4-5.0); ALBUMIN/GLOBULIN RATIO 1.4 (1.0-1.7); TOTAL PROTEIN 6.2 g/dL (6.4-8.2)
[2019-11-03] MEDS ORDERED: AZITHROMYCIN 500 MG in IV NORMAL SALINE 250ML 250 ML IV ONE (15:00)
[2019-11-03] MEDS ORDERED: IV NORMAL SALINE 250ML 250 ML ONE ×2 (15:46→15:56)
[2019-11-03] MEDS ORDERED: AZITHROMYCIN 500 MG VIAL. IV ONE ×2 (15:46→15:56)
[2019-11-03] MEDS ORDERED: cefTRIAXone SODIUM 1 GM VIAL ONE (15:46)
[2019-11-03] MEDS ORDERED: IV NORMAL SALINE 50ML 50 ML ONE (15:46)
[2019-11-03 16:37] LABS: BACTERIA,URINE 0 /HPF (0-FEW); BILIRUBIN,URINE NEG (NEG); CLARITY,URINE CLEAR; COLOR,URINE YELLOW; GLUCOSE,URINE NEG (NEG); NITRITE,URINE NEG (NEG); RBC,URINE 0 /HPF (0-2); SQUAMOUS EPITHELIAL CELL,UR FEW /LPF
[2019-11-03 18:13] VITALS: BP 148/78
[2019-11-03] MEDS ORDERED: CYCLOBENZAPRINE 10 MG TABLET. PO PRN (18:30)
[2019-11-03] MEDS ORDERED: CHROMIUM PICOLIN PO SCH (18:30)
[2019-11-03] MEDS ORDERED: ALBUTEROL SULFATE 2.5 MG/3 ML NEBU. INH PRN (18:30)
[2019-11-03] MEDS ORDERED: CINNAMON BARK PO SCH (18:30)
[2019-11-03] MEDS ORDERED: HYDROcodone/APAP 7.5/325MG 1 TAB TABLET PO PRN (18:30)
[2019-11-03] MEDS ORDERED: [UNRECOGNIZED DRUG - OTHER] PO SCH (18:30)
--- NOTE | 2019-11-03 18:40 | NUR ---
The patient, CORINA CURTIS, 89 y/o, M admitted by MARQUISE HOLLINS MD, was given written information regarding hospital policies, unit procedures and contact persons. Pt admitted from the ED with Pneumonia. Vital signs assessed and stable, pt is on 2L oxygen via [place]. Pt is alert and orient x3-4, forgetful at times. Pt is unsteady on his feet and requires x1 assist when ambulating with his cane. Valuables were checked and left in room with pt. Pt oriented to room, plan of care and call light. Bed alarm in place for pt safety, call light within reach.
[2019-11-03 19:32] VITALS: BP 109/64
--- NOTE | 2019-11-03 21:04 | HP ---
ADMIT DATE: 11/03/2019 HISTORY OF PRESENT ILLNESS: The patient is an 89-year-old male patient who came to the Emergency Room with a complaint of worsening shortness of breath over the last few days. He has some shortness of breath at baseline because he has COPD. He only uses breathing treatment and he is not on any oxygen. He does not believe he has had fever. His reports some mild dementia. He has no known COVID-19 exposure. The patient denies any chest pain or diaphoresis. He has no other complaint. He was extensively investigated in the Emergency Room. His EKG showed he was in sinus rhythm at a rate of 77. Chest x-ray showed bilateral atelectasis versus infiltrate and was admitted with community-acquired pneumonia for which he was started on IV Rocephin as well as Zithromax. He was admitted for inpatient treatment. PAST MEDICAL HISTORY: Significant for, he apparently is known to have hyperlipidemia, benign prostatic hypertrophy, carotid artery stenosis. He is also known to have chronic obstructive pulmonary disease. He also has gastroesophageal reflux disease. He has hypertension and also he is on Coumadin for some reason. He has had a history of epistaxis and history of a fall with odontoid fracture before. PAST SURGICAL HISTORY: Significant for history of nasal surgery in the past. He also has appendectomy, cholecystectomy, tonsillectomy, bilateral total knee arthroplasty, permanent pacemaker implantation and right shoulder surgery. ALLERGIES: He is allergic to INFLUENZA VIRUS VACCINE and NAPROXEN. MEDICATIONS: He is currently on following home medications: He is on albuterol sulfate 1 puff every 6 hours. He is on tamsulosin 0.4 mg once a day, cyclobenzaprine 10 mg 3 times a day as needed for muscle spasm. He is on warfarin 5 mg 3 times a week and 6 mg every other day. He is on Plavix 75 mg once a day, omega-3 fatty acids 1000 mg once a day, metoprolol succinate 12.5 mg once a day. He is on lisinopril 20 mg once a day, aspirin 81 mg once a day, hydrocodone/APAP 7.5/325 one tablet every 6 hours, omeprazole 40 mg once a day, multivitamin 1 tablet once a day, cinnamon bark, chromium picolinate 2 capsules once a day. FAMILY HISTORY: Noncontributory. SOCIAL HISTORY: He is , lives with his . He does not smoke, drink alcohol or use any recreational drugs. REVIEW OF SYSTEMS: As per history of present illness. The patient clearly has dementia and is unable to give succinct account of what happened that led to him being admitted. PHYSICAL EXAMINATION: GENERAL: When I examined him this afternoon, he looked well. He was sitting comfortably in the edge of the bed, eating his dinner, in no apparent distress. He was somewhat pale, but no jaundice, cyanosis or thyromegaly. No jugular venous distention. Mild bilateral lower limb edema. VITAL SIGNS: His heart rate was 92, blood pressure was 138/68, his temperature was 98.1, respiratory rate was 14 and oxygen saturation was 97% on 2 liters of oxygen. HEAD, EYES, EARS, NOSE AND THROAT: Showed normocephalic, atraumatic. NECK: Supple. HEART: Showed normal first and second heart sounds with no gallop, rub or murmur. CHEST: Shows central trachea, equal bilateral expansion, air entry, very few bilateral crepitation. I could not appreciate any rhonchi. LABORATORY DATA: His lab work in the Emergency Room showed a white cell count 6800, hemoglobin 12, hematocrit 35, MCV 102 and platelet count of 196,000. His chemistry showed a serum sodium 141, potassium 3.7, chloride 103, bicarbonate 29, anion gap of 9, BUN 10, creatinine 1.1, estimated GFR was 63 mL per minute. His glucose was 103, calcium was 8.5. Total bilirubin, AST, ALT, alkaline phosphatase were normal. His troponin was 0.021. Beta natriuretic peptide was 4271. Total protein was 6.2, albumin was 3.6. Urinalysis showed the urine was yellow, clear with a pH of 8.5, specific gravity 1.015. The urine showed trace of protein, negative for glucose, ketones, nitrite and leukocyte esterase, no rbc's, 1-4 wbc's and no bacteria. His chest x-ray showed the heart is enlarged. There is a left pacemaker with atrial and ventricular pacing leads. He has atelectasis and infiltrate in both lower lobes, upper lung zones are clear. There is an old right rib fracture. ASSESSMENT AND PLAN: The patient was admitted with community-acquired pneumonia. He was started with IV Rocephin and Zithromax. His heart is enlarged and his BNP is elevated at 4271. I would definitely consult the Cardiology and might have to start him also on IV Lasix tomorrow if symptoms have not improved. Other medical problems include hyperlipidemia, benign prostatic hypertrophy, and chronic obstructive pulmonary disease. There is mention of his blood sugars to be high, although he is not on any oral hypoglycemic agent. We will continue with all his medication and consult the Cardiology for evaluation and treatment. MARQUISE HOLLINS MD DR: SUJATA/fidel JOB#: [id number] / [id number]
[2019-11-03 23:31] VITALS: BP 137/80
[2019-11-04] MEDS ORDERED: ZONI25CA25 PO (02:20)
[2019-11-04] MEDS ORDERED: DONE10TA7 PO (02:20)
[2019-11-04] MEDS ORDERED: ATOR40TA59 PO (02:20)
[2019-11-04] MEDS ORDERED: AZEL205.2 NS (02:20)
[2019-11-04] MEDS ORDERED: METO-239 PO (02:20)
[2019-11-04] MEDS ORDERED: IPRA12.9 IH (02:20)
--- NOTE | 2019-11-04 05:15 | NUR ---
Cardiac consult called to [facility]
[2019-11-04 05:35] VITALS: BP 111/64
[2019-11-04 07:17] LABS: HEMATOCRIT 33.7 % (39.0-53.0); HEMOGLOBIN 11.2 g/dL (13.0-17.5); RED BLOOD COUNT 3.33 x10^6/uL (4.30-5.70); RED CELL DISTRIBUTION WIDTH 14.9 % (11.5-14.5); WHITE BLOOD COUNT 6.2 x10^3/uL (4.0-11.0)
[2019-11-04 07:27] LABS: ALBUMIN 3.1 g/dL (3.4-5.0); ALBUMIN/GLOBULIN RATIO 1.4 (1.0-1.7); CALCIUM 7.9 mg/dL (8.5-10.1); CREATININE 0.9 mg/dL (0.7-1.3); GFR 79.8; POTASSIUM 3.6 mmol/L (3.5-5.1); TOTAL PROTEIN 5.3 g/dL (6.4-8.2)
--- NOTE | 2019-11-04 08:41 | PDOC2 ---
CARDIAC CONSULT DATE OF CONSULT Date Of Consult DATE: 11/04/19 TIME: 08:37 REASON FOR CONSULT Reason for Consult Elevated BNP REFERRING PHYSICIAN Referring Physician Dr. Dougherty SOURCE Source: Chart review, Patient HPI History of Present Illness This is an 89 yo male who presented secondary to shortness of breath. Reports chronic SOA. Has a history of COPD. Has been a little more short of breath the last couple of days. Was worse yesterday so he came to the ED for further evaluation and treatment. Denies any chest pain, palpitations, dizziness, diaphoresis, or nausea/vomiting. PAST MEDICAL HISTORY Past Medical History Parkinson's Disease with frequent falls Cardiovascular: AFIB, CAD, HTN, hyperipidemia, aortic stenosis (severe) Pulmonary: COPD CENTRAL NERVOUS SYSTEM: CVA, Dementia GI: GERD Heme/Onc: Other (DVT) Musculoskeletal: Osteoarthritis PAST SURGICAL HISTORY Past Surgical History: Appendectomy, Cholecystectomy, Tonsillectomy, Other (bilateral knee ) FAMILY HISTORY Family History: Other (noncontributroy to age ) SOCIAL HISTORY Smoke: No ALCOHOL: none Drugs: None Lives: with Family CURRENT MEDICATIONS Current Medications Current Medications Ceftriaxone Sodium 1 gm/ Sodium Chloride 50 ml @ 100 mls/hr 1X ONCE IV Last administered on 11/03/19at 16:10; Start 11/03/19 at 14:45; Stop 11/03/19 at 15:14; Status DC Azithromycin 500 mg/Sodium Chloride 250 ml @ 250 mls/hr 1X ONCE IV Last administered on 11/03/19at 16:40; Start 11/03/19 at 15:00; Stop 11/03/19 at 15:59; Status DC Sodium Chloride 250 ml @ As Directed STK-MED ONCE .ROUTE ; Start 11/03/19 at 15:46; Stop 11/03/19 at 15:46; Status DC Sodium Chloride 50 ml @ As Directed STK-MED ONCE .ROUTE ; Start 11/03/19 at 15:46; Stop 11/03/19 at 15:46; Status DC Azithromycin (Zithromax) 500 mg STK-MED ONCE IV ; Start 11/03/19 at 15:46; Stop 11/03/19 at 15:46; Status DC Ceftriaxone Sodium (Rocephin) 1 gm STK-MED ONCE .ROUTE ; Start 11/03/19 at 15:46; Stop 11/03/19 at 15:46; Status DC Sodium Chloride 250 ml @ As Directed STK-MED ONCE .ROUTE ; Start 11/03/19 at 15:56; Stop 11/03/19 at 15:56; Status DC Azithromycin (Zithromax) 500 mg STK-MED ONCE IV ; Start 11/03/19 at 15:56; Stop 11/03/19 at 15:56; Status DC Albuterol Sulfate (Ventolin) 2.5 mg PRN Q6HRS PRN INH SHORTNESS OF BREATH; Start 11/03/19 at 18:30 Aspirin (Aspirin Enteric Coated) 81 mg DAILY PO ; Start 11/04/19 at 09:00 Clopidogrel Bisulfate (Plavix) 75 mg DAILY PO ; Start 11/04/19 at 09:00; Status UNV Cyclobenzaprine HCl (Flexeril) 10 mg PRN TID PRN PO MUSCLE SPASMS; Start 11/03/19 at 18:30 Acetaminophen/ Hydrocodone Bitart (Lortab 7.5/325) 1 tab PRN Q6HRS PRN PO PAIN; Start 11/03/19 at 18:30 Lisinopril (Prinivil) 20 mg DAILY PO ; Start 11/04/19 at 09:00 Metoprolol Succinate (Toprol Xl) 12.5 mg DAILY PO ; Start 11/04/19 at 09:00 Fish Oil (Fish Oil) 2,000 mg DAILY PO ; Start 11/04/19 at 09:00 Tamsulosin HCl (Flomax) 0.4 mg DAILY PO ; Start 11/04/19 at 09:00 Warfarin Sodium (Coumadin) 5 mg 3X/WEEK PO ; Start 11/05/19 at 09:00; Status UNV Warfarin Sodium (Coumadin) 6 mg QODAY PO ; Start 11/05/19 at 09:00; Status UNV Non-Formulary Medication (Cinnamon Bark/ Chromium Picolin (Cinnamon Plus Chromium Capsule)) 2 each 1X PO ; Start 11/03/19 at 18:30; Status UNV Multivitamins/ Calcium (Thera-M Plus) 1 tab DAILY PO ; Start 11/04/19 at 09:00 Pantoprazole Sodium (Protonix) 40 mg DAILY PO ; Start 11/04/19 at 09:00 Ceftriaxone Sodium 1 gm/ Sodium Chloride 50 ml @ 100 mls/hr Q24H IV ; Start 11/04/19 at 16:00 Azithromycin 250 mg/Sodium Chloride 250 ml @ 250 mls/hr Q24H IV ; Start 11/04/19 at 15:00 Active Scripts Active Reported Atorvastatin Calcium 40 Mg Tablet 40 Mg PO QHS Zonegran (Zonisamide) 25 Mg Capsule 50 Mg PO QHS Metoprolol Succinate ( Xl ) (Metoprolol Succinate) 25 Mg Tab.er.24h 2 Mg PO DAILY Donepezil Hcl 10 Mg Tablet 1 Tab PO DAILY Azelastine HCl 205.5 Mcg/0.137 Ml Theresa.pump 2 Spr NS BID 30 Days Atrovent Hfa (Ipratropium [place]) 12.9 Gm Hfa.aer.ad 2 Puff IH BID Multivitamins (Multivitamin) 1 Each Tablet 1 Each PO DAILY Tamsulosin Hcl 0.4 Mg Cap.er.24h 0.4 Mg PO BID Proair Hfa Inhaler (Albuterol Sulfate) 8.5 Gm Hfa.aer.ad 1 Puff INH TID ALLERGIES Allergies: Coded Allergies: naproxen (Unverified Allergy, Unknown, 12/07/17) influenza virus vaccine, specific (Verified Adverse Reaction, Intermediate, 12/07/17) ROS Review of Systems 14 point ROS conducted with pertinent positives noted above in HPI PHYSICAL EXAM General: Alert, Cooperative, No acute distress, Other (oriented to person and place) Lungs: Other (diminished. Fine bibasilar crackles ) Heart: Regular rate (100% v-paced ) Abdomen: Soft, No tenderness Extremities: Other (1+ bilateral LE edema ) Skin: No rashes, No breakdown Neuro: Normal speech, Sensation intact Psych/Mental Status: Mood NL, Other (forgetful ) MUSCULOSKELETAL: Osteoarthritic changes both hands VITALS Vital Signs Vital Signs Date Time Temp Pulse Resp B/P (MAP) Pulse Ox O2 Delivery O2 Flow Rate FiO2 11/04/19 05:35 98.3 70 20 111/64 (80) 98 Nasal Cannula 2.0 LABS LABS Laboratory Tests Test 11/03/19 13:40 11/03/19 16:00 11/04/19 06:58 White Blood Count 6.8 x10^3/uL (4.0-11.0) 6.2 x10^3/uL (4.0-11.0) Red Blood Count 3.48 x10^6/uL (4.30-5.70) 3.33 x10^6/uL (4.30-5.70) Hemoglobin 11.7 g/dL (13.0-17.5) 11.2 g/dL (13.0-17.5) Hematocrit 35.3 % (39.0-53.0) 33.7 % (39.0-53.0) Mean Corpuscular Volume 102 fL (79-100) 101 fL (79-100) Mean Corpuscular Hemoglobin 34 pg (25-35) 34 pg (25-35) Mean Corpuscular Hemoglobin Concent 33 g/dL (31-37) 33 g/dL (31-37) Red Cell Distribution Width 15.4 % (11.5-14.5) 14.9 % (11.5-14.5) Platelet Count 196 x10^3/uL (140-400) 172 x10^3/uL (140-400) Neutrophils (%) (Auto) 73 % (31-73) Lymphocytes (%) (Auto) 15 % (24-48) Monocytes (%) (Auto) 10 % (0-9) Eosinophils (%) (Auto) 1 % (0-3) Basophils (%) (Auto) 1 % (0-3) Neutrophils # (Auto) 5.0 x10^3uL (1.8-7.7) Lymphocytes # (Auto) 1.0 x10^3/uL (1.0-4.8) Monocytes # (Auto) 0.7 x10^3/uL (0.0-1.1) Eosinophils # (Auto) 0.1 x10^3/uL (0.0-0.7) Basophils # (Auto) 0.0 x10^3/uL (0.0-0.2) Sodium Level 141 mmol/L (136-145) 142 mmol/L (136-145) Potassium Level 3.7 mmol/L (3.5-5.1) 3.6 mmol/L (3.5-5.1) Chloride Level 103 mmol/L (98-107) 104 mmol/L (98-107) Carbon Dioxide Level 29 mmol/L (21-32) 31 mmol/L (21-32) Anion Gap 9 (6-14) 7 (6-14) Blood Urea Nitrogen 10 mg/dL (8-26) 8 mg/dL (8-26) Creatinine 1.1 mg/dL (0.7-1.3) 0.9 mg/dL (0.7-1.3) Estimated GFR (Cockcroft-Gault) 63.3 79.8 BUN/Creatinine Ratio 9 (6-20) 9 (6-20) Glucose Level 103 mg/dL (70-99) 95 mg/dL (70-99) Calcium Level 8.5 mg/dL (8.5-10.1) 7.9 mg/dL (8.5-10.1) Total Bilirubin 1.0 mg/dL (0.2-1.0) 1.0 mg/dL (0.2-1.0) Aspartate Amino Transf (AST/SGOT) 25 U/L (15-37) 21 U/L (15-37) Alanine Aminotransferase (ALT/SGPT) 22 U/L (16-63) 20 U/L (16-63) Alkaline Phosphatase 48 U/L (46-116) 44 U/L (46-116) Troponin I Quantitative 0.021 ng/mL (0-0.055) 0.025 ng/mL (0-0.055) EP-Xhe-B-Type Natriuretic Peptide 4271 pg/mL (0-449) Total Protein 6.2 g/dL (6.4-8.2) 5.3 g/dL (6.4-8.2) Albumin 3.6 g/dL (3.4-5.0) 3.1 g/dL (3.4-5.0) Albumin/Globulin Ratio 1.4 (1.0-1.7) 1.4 (1.0-1.7) Urine Collection Type Unknown Urine Color Yellow Urine Clarity Clear Urine pH 8.5 Urine Specific [place] 1.015 Urine Protein Trace (NEG-TRACE) Urine Glucose (UA) Neg mg/dL (NEG) Urine Ketones (Stick) Neg mg/dL (NEG) Urine Blood Neg (NEG) Urine Nitrite Neg (NEG) Urine Bilirubin Neg (NEG) Urine Urobilinogen Dipstick 1.0 mg/dL (0.2 mg/dL) Urine Leukocyte Esterase Neg (NEG) Urine RBC 0 /HPF (0-2) Urine WBC 1-4 /HPF (0-4) Urine Squamous Epithelial Cells Few /LPF Urine Bacteria 0 /HPF (0-FEW) ECHOCARDIOGRAM Echocardiogram <Conclusion> The left ventricular systolic function is normal and the ejection fraction is within normal range. There is normal LV segmental wall motion. Calculated aortic valve area is .75 cm2 with maximum pressure gradient of 55 mmHg and mean pressure gradient of 39 mmHg. Doppler and color-flow analysis revealed severe aortic stenosis. Doppler and Color Flow revealed trace tricuspid regurgitation with an estimated PAP of 32 mmHg. DATE: 01/04/19 1316 * LVEF=55-60%. * Normal left ventricular size and systolic function. * Right ventricular size and function are normal. * Pacemaker leads present in the right atrium & right ventricle. * Mild bi-atrial enlargement. * Heavily calcified aortic valve with SEVERE STENOSIS and mild regurgitation. * Mitral annular calcification with mild regurgitation. No mitral stenosis. * No pericardial effusion. * Estimated pulmonary artery systolic pressure is 32 mmHg. Compared to the echocardiogram performed on 10/09/2018, the previous aortic valve mean gradient was 34 mmHg with a peak velocity of 3.9 m/s. The previous Doppler velocity index was 0.20. 06/16/19 - 2-D + DOPPLER ECHOCARDIOGRAM HEART CATH Heart Cath 03/18 cath with a 60% lesion in ostial D2, patent LAD stent following an abnl stress test 09/14 -ve stress thallium LAD PCI ASSESSMENT/PLAN Assessment/Plan 1. Dyspnea with mild acute on chronic CHF and probable PNA. Underlying COPD as well. Recent echo with preserved LV systolic function as noted above 2. CAD s/p PCI/stent to the LAD 2000. Cath 03/18 cath with a 60% lesion in ostial D2, patent LAD stent. Desires conservative management. Follows with Dr. Gonzales with [facility]. Was seen in clinic 11/02/19 and appeared clinically compensated at visit 3. Hypertension; controlled 4. Hyperlipidemia; stating therapy 5. Persistent AFIB; ongoing AFIB since 07/2019. Not on AOC due to recurrent falls. Watchman has been declined 6. SSS s/p PPM ([facility]. [facility]ad). Device check 11/02/19 with normal function 7. Severe ; has declined TAVR per review of [facility] records 8. Parkinson's, dementia 9. H/o CVA Recommendations Check procalc Mild diuresis Resume secondary prevention Metoprolol for rate control ASA for stroke prophylaxis. Not candidate for OAC given frailty, frequent falls. Continue conservative measures as requested by patient and family Supportive care STEPHANY LONDONO APRN Nov 04, 2019 08:41
[2019-11-04] MEDS ORDERED: LISINOPRIL 20 MG TABLET PO SCH (09:00)
[2019-11-04] MEDS ORDERED: ASPIRIN ENTERIC COATED 81 MG TABLET.DR. PO SCH (09:00)
[2019-11-04] MEDS ORDERED: METOPROLOL SUCC 24HR ER 25 MG TAB.ER.24H. PO SCH ×2 (09:00→10:00)
[2019-11-04] MEDS ORDERED: OMEGA-3 FATTY ACIDS/FISH OIL 1,000 MG CAPSULE. PO SCH (09:00)
[2019-11-04] MEDS ORDERED: CLOPIDOGREL BISULFATE 75 MG TABLET PO SCH (09:00)
[2019-11-04] MEDS ORDERED: TAMSULOSIN 0.4 MG CAP.ER.24H. PO SCH (09:00)
[2019-11-04] MEDS ORDERED: OMEP20TA8 PO (09:29)
[2019-11-04] MEDS ORDERED: OXYC5TAB88 PO (09:29)
[2019-11-04] MEDS ORDERED: CALC500T31 PO (09:29)
[2019-11-04] MEDS ORDERED: ACET-1874 PO (09:29)
[2019-11-04] MEDS ORDERED: CINN500C2 PO (09:29)
[2019-11-04] MEDS ORDERED: OMEG1CAP50 PO (09:29)
[2019-11-04] MEDS ORDERED: POTASSIUM CHLORIDE 20 MEQ TABLET.ER. PO ONE (09:30)
[2019-11-04] MEDS ORDERED: oxyCODONE IR 5 MG TABLET PO PRN (09:30)
[2019-11-04] MEDS ORDERED: FUROSEMIDE 20 MG/2 ML VIAL IVP ONE (09:30)
[2019-11-04] MEDS ORDERED: CALCIUM CARBONATE 500 MG TAB.CHEW PO PRN (10:00)
[2019-11-04] MEDS: ONDANSETRON ODT 4 MG TAB.RAPDIS PO PRN (10:17)
[2019-11-04 10:46] VITALS: BP 117/66
[2019-11-04] MEDS: MULTIVITAMIN with MINERAL TABLET. PO SCH (10:52)
[2019-11-04] MEDS: METOPROLOL SUCC 24HR ER 25 MG TAB.ER.24H. PO SCH (10:52)
[2019-11-04] MEDS: DONEPEZIL HCL 10 MG TABLET PO SCH (10:52)
[2019-11-04] MEDS: PANTOPRAZOLE 40 MG TABLET. PO SCH (10:52)
[2019-11-04] MEDS: ASPIRIN ENTERIC COATED 81 MG TABLET.DR. PO SCH (10:52)
[2019-11-04] MEDS ORDERED: NON FORMULARY ITEM (Cinnamon Bark (Cinnamon) 500 MG) PO SCH (14:00)
[2019-11-04] MEDS: ACETAMINOPHEN 325 MG TABLET PO PRN (14:02)
[2019-11-04] MEDS ORDERED: AZITHROMYCIN 250 MG in IV NORMAL SALINE 250ML 250 ML IV SCH (15:00)
[2019-11-04 15:36] VITALS: BP 113/74
[2019-11-04 19:18] VITALS: BP 103/65
[2019-11-04] MEDS: IPRATROPIUM BROMIDE 0.5 MG/2.5 ML NEBU. NEB SCH (20:22)
[2019-11-04] MEDS: ATORVASTATIN CALCIUM 20 MG TABLET PO SCH (20:39)
[2019-11-04] MEDS: TAMSULOSIN 0.4 MG CAP.ER.24H. PO SCH (20:39)
[2019-11-04] MEDS: LACTOBACILLUS RHAMNOSUS GG 1 CAPSULE. PO SCH (20:39)
[2019-11-04] MEDS: AZELASTINE NASAL SPRAY 30ML BOTTLE. NS SCH (20:44)
[2019-11-04] MEDS ORDERED: NON FORMULARY ITEM (Ipratropium Bromide (Atrovent Hfa) 2 PUFF) IH SCH (21:00)
--- NOTE | 2019-11-04 21:11 | PN ---
DATE: SUBJECTIVE: The patient is resting, slightly, propped up in bed, in no apparent respiratory distress. He is awake, alert, but very confused and has extremely poor memory; however, he denied any chest pain or shortness of breath and generally feeling much better, has slept well last night. He is not huffing and puffing and he walks to the bathroom with a cane with minimal assistance or standby assist. PHYSICAL EXAMINATION: GENERAL: When I examined him, he looked somewhat pale, but no jaundice, cyanosis or thyromegaly. No jugular venous distention. Mild bilateral lower limb edema. VITAL SIGNS: His heart rate was 86, blood pressure was 117/66, temperature 97.9, respiratory rate was 16, and oxygen saturation was 96% on 2 liters of oxygen. HEAD, EYES, EARS, NOSE AND THROAT: Normocephalic, atraumatic. NECK: Supple. HEART: Showed normal first and second sounds. No gallop or murmur. CHEST: Shows central trachea, equal bilateral expansion, air entry ____ bilateral basal crepitation mostly posteriorly. I could not appreciate any rhonchi. ABDOMEN: Distended, soft, nontender. NEUROLOGIC: He was demented, but without any obvious lateralizing signs. All his cranial nerves are intact. He moves extremities without difficulty, ambulates with a cane. His intake over the last 24 hours and output are incompletely recorded. LABORATORY DATA: His lab work this morning showed his white cell count to be 6200, hemoglobin 11, hematocrit 33, MCV 101, and platelet count of 172,000. His chemistry showed a serum sodium 142, potassium 3.6, chloride 104, bicarbonate 31, anion gap of 7, BUN 8, creatinine 0.9, estimated GFR was 79 mL per minute. His glucose was 95, calcium was 7.9. Total bilirubin, AST, ALT, alkaline phosphatase were normal. His total protein was 5.3, albumin was 3.1. Procalcitonin was less than 0.1. Urinalysis essentially unremarkable. ASSESSMENT: 1. [id number] diastolic congestive heart failure. 2. Probable community-acquired pneumonia and chronic obstructive pulmonary disease. Apparently, his most recent echocardiogram showed he has preserved left ventricular systolic function. 3. Coronary artery disease, status post PCI stent deployment to left anterior descending. The patient declined any further aggressive management. He follows with Dr. Gonzales. 4. Hypertension, well controlled. 5. Hyperlipidemia for which he is on statin. 6. Persistent atrial fibrillation, ongoing atrial fibrillation, not a candidate for oral anticoagulation. Sick sinus syndrome, status post permanent pacemaker, it was checked on 11/02/2019 with normal function. Severe aortic stenosis, has declined transcatheter aortic valve replacement per review of ____ records. Parkinson's disease and dementia and has a history of cerebrovascular accident. PLAN: To continue with the antibiotic. Continue with aspirin for stroke prophylaxis as the patient is not a candidate for oral anticoagulation. We will probably diurese him on a daily basis and hopefully if he is feeling much better by tomorrow, he might be able to be discharged home. MARQUISE HOLLINS MD DR: SUJATA/fidel JOB#: [id number] / [id number]
[2019-11-04 22:24] VITALS: BP 132/78
[2019-11-05 05:29] VITALS: BP 105/58
[2019-11-05 06:36] LABS: CALCIUM 7.6 mg/dL (8.5-10.1); CREATININE 1.1 mg/dL (0.7-1.3); GFR 63.3; POTASSIUM 3.6 mmol/L (3.5-5.1)
[2019-11-05] MEDS: OMEGA-3 FATTY ACIDS/FISH OIL 1,000 MG CAPSULE. PO SCH (07:53)
[2019-11-05] MEDS: LACTOBACILLUS RHAMNOSUS GG 1 CAPSULE. PO SCH ×2 (07:53→21:07)
[2019-11-05] MEDS: MULTIVITAMIN with MINERAL TABLET. PO SCH (07:53)
[2019-11-05] MEDS: TAMSULOSIN 0.4 MG CAP.ER.24H. PO SCH ×2 (07:54→21:07)
[2019-11-05] MEDS: ASPIRIN ENTERIC COATED 81 MG TABLET.DR. PO SCH (07:54)
[2019-11-05] MEDS: DONEPEZIL HCL 10 MG TABLET PO SCH (07:54)
[2019-11-05] MEDS: METOPROLOL SUCC 24HR ER 25 MG TAB.ER.24H. PO SCH (07:54)
[2019-11-05] MEDS: ACETAMINOPHEN 325 MG TABLET PO PRN ×3 (07:54→21:07)
[2019-11-05] MEDS: PANTOPRAZOLE 40 MG TABLET. PO SCH (07:54)
[2019-11-05] MEDS: AZELASTINE NASAL SPRAY 30ML BOTTLE. NS SCH ×2 (07:57→21:05)
[2019-11-05] MEDS ORDERED: AZITHROMYCIN 250 MG in IV NORMAL SALINE 250ML 250 ML IV SCH ×2 (09:00→15:00)
[2019-11-05] MEDS ORDERED: NON FORMULARY ITEM (Omeprazole 1 TAB) PO SCH (09:00)
[2019-11-05] MEDS ORDERED: WARFARIN 5 MG TABLET. PO SCH ×2 (09:00)
[2019-11-05] MEDS: IPRATROPIUM BROMIDE 0.5 MG/2.5 ML NEBU. NEB SCH ×2 (10:22→20:44)
[2019-11-05] MEDS ORDERED: AZITHROMYCIN 500 MG in IV NORMAL SALINE 250ML 250 ML IV SCH ×5 (10:45→15:00)
[2019-11-05 11:24] VITALS: BP 113/68
[2019-11-05] MEDS ORDERED: FUROSEMIDE 40 MG/4 ML VIAL IVP ONE (12:45)
--- OUTSIDE RECORDS SUMMARY | 2019-11-05 14:21 | XMS REPORT | Patient Health Record ---
Author Author [facility] Organization [facility] Address Unknown Phone Unavailable Care Team Providers Care [facility] Intern Name Role Phone TY AUGUSTIN Unavailable [phone] ROSARIO Hicks Unavailable [phone] EMILY FONSECA Unavailable [phone] PROBLEMS Type Condition ICD9-CM Code [id number] Code Onset Dates Condition S tatus SNOMED Code Notes Problem Claudication I73.9 Active [id number] ALLERGIES No Information ENCOUNTERS from 1930 to 2019-11-05 Encounter Location Date Provider [facility] [address] [facility] [place] [address] Jan, TY AUGUSTIN Claudication I73.9 IMMUNIZATIONS No Information SOCIAL HISTORY Sex Assigned At : Social History Observation Description Sex Assigned At Unknown REASON FOR REFERRAL from 1930 to 2019-11-05 Reason CCD Referring Provider First Name YONATHAN Referring Provider Last Name ANDREW Referring Provider Specialty Neurology Referring Provider email [email or web address] Referred Provider N/A, [email or web address] VITAL SIGNS No information MEDICATIONS No Information PROCEDURES No Information RESULTS Component Value Reference Range [employer] Reviewed date:01/17/2017 13:45:09 Interpretation:Normal Performing Lab:[facility] [address], ,[place] [address] REASON FOR VISIT Mail out PAD, [employer], mail out Goals Section No Information Health Concerns No Information MEDICAL EQUIPMENT No Information MENTAL STATUS No Information FUNCTIONAL STATUS No Information ASSESSMENTS Encounter Date Diagnosis Notes Jan, Claudication (ICD-10 - I73.9) PLAN OF TREATMENT Referrals Referral Date Details CCD
[2019-11-05 15:00] VITALS: BP 103/57
--- NOTE | 2019-11-05 17:32 | PN ---
DATE: 11/05/2019 SUBJECTIVE: The patient is sitting in his chair comfortably, eating his lunch, in no apparent distress. He is feeling generally much improved. States he has no cough or phlegm, he is able to talk and slept well last night, although his legs are still slightly swollen. PHYSICAL EXAMINATION: GENERAL: When I examined him, he looked somewhat pale, but no jaundice, cyanosis, or thyromegaly. No jugular venous distention. He has mild bilateral lower limb edema. VITAL SIGNS: His heart rate was 70, blood pressure was 113/68, temperature 97.5, respiratory rate was 18, and oxygen saturation was 97% on room air. HEAD, EYES, EARS, NOSE, AND THROAT: Normocephalic, atraumatic. NECK: Supple. HEART: Normal first and second heart sounds. No gallop or murmur. CHEST: Shows central trachea, equal bilateral expansion, air entry, vesicular sounds. No crepitation or rhonchi. ABDOMEN: Distended, soft, nontender. NEUROLOGIC: He was awake, alert, responding appropriately. All cranial nerves are intact. He moves extremities without difficulty. He ambulates with a cane. His intake was 300, output was 250. LABORATORY DATA: As of this morning, his white cell count was 6200, hemoglobin 11, hematocrit 33, MCV 101, and platelet count of 172,000. His serum sodium was 141, potassium 3.6, chloride 103, bicarbonate 32, anion gap of 6, BUN 11, creatinine 1.1, estimated GFR was 63 mL per minute. His glucose was 95, calcium was 7.6. His beta-natriuretic peptide was down to 2641. ASSESSMENT: 1. Acute on chronic diastolic congestive heart failure. 2. Probable community-acquired pneumonia, chronic obstructive pulmonary disease. 3. Apparently, his most recent echocardiogram showed he has preserved left ventricular systolic function. 4. Coronary artery disease, status post PCI with stent deployment to left anterior descending. 5. Apparently, the patient has severe aortic stenosis, but the patient declined a transcatheter aortic valve replacement. 6. Hypertension, well controlled. 7. Hyperlipidemia for which he is on statin. 8. Persistent atrial fibrillation, apparently is not a candidate for anticoagulation. 9. Sick sinus syndrome, status post permanent pacemaker. It was checked on 11/02/2019 with normal function. 10. Parkinson disease with dementia. 11. History of cerebrovascular accident. PLAN: To continue with the antibiotic. Continue with aspirin for stroke prevention. I will give him one more dose of IV Lasix and hopefully discharge him home tomorrow. MARQUISE HOLLINS MD DR: SUJATA/fidel JOB#: [id number] / [id number]
--- NOTE | 2019-11-05 17:37 | NUR ---
NURSING NOTE PT WAS UP IN CHAIR THIS AM FOR ASSESSMENT AND MEDICATION ADMINISTRATION. PT IS A&O BUT IS FORGETFUL AT TIMES. PT IS CALM AND COOPERATIVE WITH ALL CARES THUS FAR. PT TAKEN OFF OXYGEN TODAY AND DOING FINE. PT HAS C/O HEADACHE OFF AND ON THROUGHOUT THE DAY, STATES HE USES TYLENOL AT HOME, PRN TYLENOL GIVEN. PT C/O SORE THROAT AND SWOLLEN LYMPH NODE ON RIGHT SIDE, DR HOLLINS NOTIFIED, CT SOFT TISSUE OF NECK ORDERED. PT SEES DR VISHNU PATEL ENT OUTPATIENT FOR CHRONIC SINUS ISSUES. PT INFORMED THAT IF NOTHING IS FOUND ON IMAGING, TO FOLLOW UP WITH ENT PROVIDER. PT IS SCHEDULED TO DC TOMORROW IF DOING WELL IN AM. LUIS RAMIRES.
--- NOTE | 2019-11-05 18:53 | RAD ---
CT SOFT TISSUE NECK WO CONTRST History:Reason: lump in the right side of the neck with difficulty swallowing / Spl. Instructions: marked w bb / History: Technique: CT imaging was performed of the neck soft tissues without contrast. Coronal and sagittal reconstructions were performed. Exposure: One or more of the following individualized dose reduction techniques were utilized for this examination: 1. Automated exposure control 2. Adjustment of the mA and/or kV according to patient size 3. Use of iterative reconstruction technique. Comparison: CT cervical spine December 07, 2017 Findings: Marker was placed overlying the region the patient's palpable concern. Deep to this region there is a normal-appearing submandibular gland. No pathologic lymphadenopathy or abnormal mass. Symmetric bilateral parotid and submandibular glands. Unremarkable thyroid gland. No pathologic lymphadenopathy. Small bilateral pleural effusions. Enlarged pulmonary artery measures 3.5 cm. Mild inferior maxillary sinus mucosal thickening. Mastoid air cells are clear. Imaged orbits and intracranial contents are unremarkable. Multilevel cervical spondylosis. Chronic dens fracture with increased displacement compared to 2018. C1-C2 posterior pannus formation contributing to narrowing at the cervical medullary junction, unchanged. Grade 1 anterolisthesis C3 on C4 and C4 on C5. Facet arthropathy. Multilevel neuroforaminal narrowing. No high-grade canal stenosis. Impression: 1. No acute pathology within the neck soft tissues. Normal appearing right submandibular gland corresponds with patient's palpable abnormality. 2. Small bilateral pleural effusions. 3. Enlarged pulmonary artery, may indicate pulmonary artery hypertension. 4. Chronic dens fracture with increased displacement compared to 2018. 5. Multilevel cervical spondylosis. Electronically signed by: Stew Rivas DO (11/05/2019 6:50 PM) [facility]
[2019-11-05] MEDS: ATORVASTATIN CALCIUM 20 MG TABLET PO SCH (21:07)
[2019-11-06] VITALS: BP 83/51
[2019-11-06 00:54] VITALS: BP 98/66
--- NOTE | 2019-11-06 00:55 | NUR ---
Pt has been oriented, alert and talkative all evening. He states he "feels confused and forgetful." He c/o discomfort in his feet, being cold and swollen, and in his throat, feeling sore. Pt blood pressure measured lower than WNL with multiple attempts using blood pressure machine on left arm while lying on right side. BP retaken manually, supine. Pt expressed he need to sit up and cough; raised pt up to sitting position, encouraged to drink water and cough sputum. Pt unable to expectorate sputum. He states he feels like it is stuck in his throat, which feels tight and sore. Pt states his feet feel increasingly cold. Pulses and edema assessed with no change since previous assessment. Warm blankets and heating pad wrapped around feet and tucked on top of patient. Will continue to monitor.
[2019-11-06] MEDS: ONDANSETRON ODT 4 MG TAB.RAPDIS PO PRN (01:31)
[2019-11-06 03:06] VITALS: BP 106/63
[2019-11-06 06:29] LABS: BASO # 0.1 x10^3/uL (0.0-0.2); BASO % 1 % (0-3); EOS # 0.2 x10^3/uL (0.0-0.7); EOS % 3 % (0-3); HEMATOCRIT 35.1 % (39.0-53.0); HEMOGLOBIN 11.6 g/dL (13.0-17.5); LYMPH # 1.5 x10^3/uL (1.0-4.8); LYMPH % 21 % (24-48); MEAN CORPUSCULAR HEMOGLOBIN 33 pg (25-35); MEAN CORPUSCULAR HGB CONC 33 g/dL (31-37); MEAN CORPUSCULAR VOLUME 101 fL (79-100); MONO # 0.7 x10^3/uL (0.0-1.1); MONO % 10 % (0-9); NEUT # 4.4 x10^3uL (1.8-7.7); NEUT % 65 % (31-73); PLATELET COUNT 177 x10^3/uL (140-400); RED BLOOD COUNT 3.47 x10^6/uL (4.30-5.70); RED CELL DISTRIBUTION WIDTH 14.8 % (11.5-14.5); WHITE BLOOD COUNT 6.8 x10^3/uL (4.0-11.0)
[2019-11-06 06:46] VITALS: BP_SYST 101; BP_SYST 109; BP_DIAS 63; BP_DIAS 67
[2019-11-06 06:52] LABS: ALBUMIN 3.2 g/dL (3.4-5.0); ALBUMIN/GLOBULIN RATIO 1.1 (1.0-1.7); CALCIUM 7.8 mg/dL (8.5-10.1); CREATININE 1.2 mg/dL (0.7-1.3); GFR 57.3; POTASSIUM 3.5 mmol/L (3.5-5.1); TOTAL BILIRUBIN 0.4 mg/dL (0.2-1.0)
[2019-11-06] MEDS: PANTOPRAZOLE 40 MG TABLET. PO SCH (08:36)
[2019-11-06] MEDS: MULTIVITAMIN with MINERAL TABLET. PO SCH (08:36)
[2019-11-06] MEDS: TAMSULOSIN 0.4 MG CAP.ER.24H. PO SCH (08:36)
[2019-11-06] MEDS: ASPIRIN ENTERIC COATED 81 MG TABLET.DR. PO SCH (08:36)
[2019-11-06] MEDS: LACTOBACILLUS RHAMNOSUS GG 1 CAPSULE. PO SCH (08:36)
[2019-11-06] MEDS: DONEPEZIL HCL 10 MG TABLET PO SCH (08:36)
[2019-11-06 08:38] VITALS: BP 101/63
[2019-11-06] MEDS: METOPROLOL SUCC 24HR ER 25 MG TAB.ER.24H. PO SCH (08:38)
[2019-11-06] MEDS: AZELASTINE NASAL SPRAY 30ML BOTTLE. NS SCH (08:38)
[2019-11-06] MEDS: OMEGA-3 FATTY ACIDS/FISH OIL 1,000 MG CAPSULE. PO SCH (08:38)
[2019-11-06] MEDS: IPRATROPIUM BROMIDE 0.5 MG/2.5 ML NEBU. NEB SCH (09:39)
[2019-11-06] MEDS ORDERED: CEFD300C PO (11:05)
[2019-11-06] MEDS ORDERED: AZIT250T PO (11:05)
[2019-11-06] MEDS ORDERED: GUAI600T47 PO (11:05)
[2019-11-06] MEDS ORDERED: FURO-68 PO (11:19)
--- NOTE | 2019-11-06 12:20 | DS ---
DATE OF DISCHARGE: HOSPITAL COURSE: The patient is an 89-year-old male patient who was admitted originally on 11/03/2019 with worsening shortness of breath that has been going on for the last few days. He denied any fever. His reports some mild dementia. He has no known COVID-19 exposure. The patient denies any chest pain or diaphoresis, has had no other complaint. He was extensively investigated in the Emergency Room and was found to have bilateral atelectasis versus infiltrate and was admitted with questionable acute community-acquired pneumonia. His BNP was high and was admitted also with acute on chronic diastolic congestive heart failure, treated with IV Lasix, and the patient did very well. He continued to have difficulty clearing his throat and complaining of a lump in his neck and I did actually a CT scan of the soft tissue of the neck, which showed that the patient has no acute pathology within the neck soft tissue, normal appearing right submandibular gland corresponding to the patient's palpable abnormalities, small bilateral pleural effusion, has enlarged pulmonary artery, may indicate pulmonary artery hypertension. He has chronic dens fracture with increased displacement compared to 2018, has multilevel cervical spondylosis. As the patient remained hemodynamically stable, afebrile, maintaining his oxygen saturation at 93% on room air, a decision was made to discharge him home with the advice to follow with his ENT surgeon, Dr. Marli Bolanos, to continue to follow with his neurosurgeon at [facility], and also with Dr. Gonzales. I also started him on Mucinex as he has what seemed to be postnasal drip and very thick secretions that is difficult for him to clear, and I advised him to follow with Dr. Gonzales in 1 week's time. PHYSICAL EXAMINATION: GENERAL: When I examined him this morning, he was sitting slightly propped up in bed, in no apparent respiratory distress, slightly pale, but no jaundice, cyanosis or thyromegaly. No jugular venous distention. No limb edema. VITAL SIGNS: His heart rate was 70, blood pressure was 101/63, temperature was 98.4, respiratory rate was 16, and oxygen saturation was 93% on room air. HEAD, EYES, EARS, NOSE AND THROAT: Normocephalic, atraumatic. NECK: Supple. HEART: Showed normal first and second heart sounds. No gallop, rub or murmur. CHEST: Clear to auscultation. No crepitation or rhonchi. ABDOMEN: Distended, soft, nontender. NEUROLOGIC: He was hard of hearing, otherwise all his cranial nerves are intact. He moves extremities without difficulty, ambulates with a walker. His intake over the last 24 hours was 1216. No output was recorded. LABORATORY DATA: As of this morning, his white cell count was 6,800, hemoglobin 11.6, hematocrit 35, MCV 101, and platelet count of 177,000. His chemistry showed a serum sodium of 141, potassium 3.5, chloride 102, bicarbonate 34, anion gap of 5, BUN 12, creatinine 1.2, estimated GFR was 57 mL per minute. His glucose was 91, calcium was 7.8. Total bilirubin, AST, ALT, alkaline phosphatase were normal. Total protein was 6, albumin 3.1. DISCHARGE MEDICATIONS: He was discharged home to continue with Zithromax 250 mg once a day for 2 more days and cefdinir 300 mg twice a day for 6 more days, furosemide 40 mg once a day as needed for weight gain of more than 3 pounds, Mucinex 600 mg twice a day for 10 days. He should continue on Tylenol 650 mg every 8 hours, albuterol sulfate for ProAir 1 puff 3 times a day as needed, atorvastatin calcium 40 mg at bedtime, azelastine 2 sprays to each nostril twice a day, calcium carbonate 500 mg every 3 hours, cinnamon bark 500 mg 3 times a day, Aricept 10 mg once a day, ipratropium bromide 2 puffs twice a day, metoprolol succinate 25 mg once a day, multivitamin 1 tablet once a day, omega-3 fatty acid 1 capsule once a day, omeprazole 20 mg once a day, oxycodone 5 mg every 12 hours, tamsulosin 0.4 mg twice a day and zonisamide for Zonegran 50 mg at bedtime. FINAL DISCHARGE DIAGNOSES: 1. Community-acquired pneumonia. 2. Acute on chronic diastolic congestive heart failure. 3. Chronic obstructive pulmonary disease. 4. Coronary artery disease, status post PCI with stent deployment to left anterior descending. 5. Apparently, the patient has severe aortic stenosis, but the patient declined transcatheter aortic valve replacement. 6. Hypertension, well controlled. 7. Hyperlipidemia, for which he is on statin. 8. Persistent atrial fibrillation, apparently he is not a candidate for anticoagulation. 9. Sick sinus syndrome, status post permanent pacemaker, was checked on 11/02/2019 and was found to be functioning normally. 10. Parkinson's disease with dementia. 11. History of cerebrovascular accident. MARQUISE HOLLINS MD DR: SUJATA/fidel JOB#: [id number] / [id number]
--- NOTE | 2019-11-06 14:53 | PDOC ---
PROVIDER NOTE PROVIDER NOTE PROVIDER NOTE Late entry for 11/05/2019 CARDIOLOGY progress note Subjective: Patient is slightly confused but denies any specific cardiac limitations. He reports that his dyspnea is mildly improved but still present Objective: He is alert and oriented to self and place Cardiac exam notable for a 5 out of 6 systolic murmur consistent with severe aortic stenosis He has trace edema in the bilateral lower extremities 2+ radial pulses Lungs with decreased breath sounds bilaterally Abdomen is soft nontender nondistended Neurologic no focal deficits Laboratory studies reviewed Telemetry reviewed Current cardiovascular medications include aspirin and atorvastatin Impression: 1. Acute on chronic diastolic heart failure in the setting of pneumonia and severe aortic stenosis Recommendations: 1. Given the patient's age and their inclination for the patient and the family not to pursue any further aggressive intervention I would strongly suggest evaluation for hospice placement. 2. Continue diuresis as tolerated 3. Follow-up with primary composition floor layer at Justification of Admission: Justification of Admission: Justification of Admission Dx: Yes RYNE THOMSON MD Nov 06, 2019 14:53
== END 2019-11-06 13:13 | disposition home or self-care (01) | DRG 291 ==
LOC: ER 12:12 → 1 SOUTH 14:30
PROVIDERS: ADMIT Internal Medicine; ATTEND Internal Medicine
DX: I11.0 Hypertensive heart disease with heart failure (principal); J18.9 Pneumonia, unspecified organism; I48.19 Other persistent atrial fibrillation; J44.0 Chronic obstructive pulmonary disease with (acute) lower respiratory infection; I50.33 Acute on chronic diastolic (congestive) heart failure; E78.00 Pure hypercholesterolemia, unspecified; E78.5 Hyperlipidemia, unspecified; F02.80 Dementia in other diseases classified elsewhere, unspecified severity, without behavioral disturbance, psychotic disturbance, mood disturbance, and anxiety; G20 Parkinson's disease; I25.10 Atherosclerotic heart disease of native coronary artery without angina pectoris; I35.0 Nonrheumatic aortic (valve) stenosis; I49.5 Sick sinus syndrome; N40.0 Benign prostatic hyperplasia without lower urinary tract symptoms; Z79.01 Long term (current) use of anticoagulants; Z86.73 Personal history of transient ischemic attack (TIA), and cerebral infarction without residual deficits; Z95.0 Presence of cardiac pacemaker; Z95.5 Presence of coronary angioplasty implant and graft; Z96.653 Presence of artificial knee joint, bilateral; K21.9 Gastro-esophageal reflux disease without esophagitis; M19.90 Unspecified osteoarthritis, unspecified site; Z88.8 Allergy status to other drugs, medicaments and biological substances
CPT/HCPCS: 36415; 70490; 71045; 80048; 80053; 81001; 83880; 84145; 84484; 85025; 85027; 85610; 93005; 94640; 96365; 96367; J0456; J0696; J1940; J7050; J7644; Q0162; 97110; 97116; 97535; 99285-25

== ENCOUNTER 2020-08-26 18:01 | Emergency (ER) | payer MEDICARE ==
[~2020-08-26] VITALS: Ht 167.6 cm; Wt 76.2 kg
[~2020-08-26 18:01] MED LIST changes: +ACET-1874 PO; +ATOR40TA59 PO; +AZEL205.2 NS; +AZIT250T PO; +CALC500T31 PO; +CEFD300C PO; +CINN500C2 PO; +DONE10TA7 PO; +FURO-68 PO; +GUAI600T47 PO; +IPRA12.9 IH; -LISI-334 PO; +LISI20TA18 PO; +METO-239 PO; +OMEG1CAP50 PO; +OMEP20TA8 PO; +OXYC5TAB88 PO; +ZONI25CA25 PO
--- NOTE | 2020-08-26 18:56 | PHYS DOC ---
Past History Past Medical History: A-Fib, Asthma, COPD, Dementia, GERD, High Cholesterol Past Surgical History: Knee Replacement, Pacemaker, Other Alcohol Use: None Drug Use: None Adult General Chief Complaint Chief Complaint: MECHANICAL FALL HPI HPI Patient is an 89-year-old male with a past medical history significant for Parkinson's disease who presents with family after a fall at home. States that he fell at about 11:30 AM this morning at home. States he fell in between the door and the wall. Denies any loss of consciousness. States that since then he has been at baseline mentation, and walking normally for him. States that over the course of the day he started complaining about pain in his back and hips so they decided to bring him into the emergency department. Patient endorses some pain in his mid and lower back, 5 out of 10, dull and achy in nature and 3 out of 10 in his neck, dull and achy in nature none with any radiation. Denies any numbness/weakness/tingling. Is able to sit, stand and walk at baseline. Is at baseline mentation. Denies any chest pain, shortness of breath, abdominal pain, nausea, vomiting, hematuria or blood in the stool. States he has had a bowel movement and made urine since then. States he is also eaten since then. Review of Systems Review of Systems Review of systems otherwise unremarkable except noted in HPI Allergies Allergies Allergies Coded Allergies Type Severity Reaction Last Updated Verified naproxen Allergy Unknown 12/07/17 No influenza virus vaccine, specific Adverse Reaction Intermediate 12/07/17 Yes Physical Exam Physical Exam Constitutional: Well developed, well nourished, no acute distress, non-toxic appearance. [] HENT: Normocephalic, atraumatic, bilateral external ears normal, oropharynx moist, no oral exudates, nose normal. [] Eyes: conjunctiva normal, no discharge. [] Neck: Normal range of motion, no tenderness, supple, no stridor. [] Cardiovascular:Heart rate regular rhythm, no murmur [] Lungs & Thorax: Bilateral breath sounds clear to auscultation [] Abdomen: soft, no tenderness, no masses, no pulsatile masses. [] Skin: Warm, dry, no erythema, no rash. [] Back: Lumbar midline tenderness/thoracic midline tenderness/cervical midline tenderness with no obvious bruising, deformities or step-offs. Patient has full baseline range of motion. Extremities: Tenderness at left hip joint with no obvious deformities, bruising and has full range of motion. Neurovascular exam intact Neurologic: Alert and oriented X 3, normal motor function, normal sensory function, baseline mentation and function per family Psychologic: Affect normal, judgement normal, mood normal. [] Current Patient Data Vital Signs Vital Signs Date Time Temp Pulse Resp B/P (MAP) Pulse Ox O2 Delivery O2 Flow Rate FiO2 08/26/20 18:15 97.7 70 18 113/61 (78) 95 Room Air EKG EKG [] Radiology/Procedures Radiology/Procedures [] Comparisons: 12/21/2018 FINDINGS: Head: No focal parenchymal lesion or hemorrhage is identified. There is no midline shift or sulcal effacement. Patchy hypodensity in the periventricular white matter, similar to prior study. Chronic infarct at the medial right occipital lobe. No acute vascular territory infarction is identified. Ozuna-white distinction is preserved. The ventricular system is within normal limits without compression hydrocephalus. The basal cisterns are well maintained. The visualized portions of the paranasal sinuses and mastoid air cells are well- pneumatized. No acute fractures. Cervical spine: Straightening of cervical spine which may be positional. Vertebral body heights are well-maintained. Fracture to the cervical spine is not identified. Multilevel spondylotic change in cervical spine with degenerative disc disease greatest at C5-C6 and C6-C7. Mild bilateral facet arthropathy is also noted in the cervical spine. Visualized soft tissues are unremarkable. Thoracic spine: Vertebral body heights and alignment are well-maintained. Fracture through the thoracic spine is not identified. Multilevel spondylotic change in cervical spine with degenerative disc disease diffusely present. Strandy bibasilar airspace disease. Lumbar spine: Vertebral body heights and alignment are well-maintained. Fracture to the cervical spine is not identified. Multilevel spondylotic change in the lumbar spine with degenerative disc disease lower lumbar spine. Diffuse bilateral facet arthropathy is also noted. Visualized paraspinal soft tissues are unremarkable. IMPRESSION: 1. No acute intracranial abnormality. 2. Negative CT C-spine for acute traumatic injury. 3. Negative CT T spine for acute traumatic injury. 4. Negative CT L-spine for acute traumatic injury. Electronically signed by: Estefany Moser MD (08/26/2020 7:51 PM) [facility] Heart Score C/O Chest Pain: No Risk Factors: Risk Factors: DM, Current or recent (<one month) smoker, HTN, HLP, family his tory of CAD, obesity. Risk Scores: Risk Factors: DM, Current or recent (<one month) smoker, HTN, HLP, family history of CAD, obesity. Course & Med Decision Making Course & Med Decision Making Patient is an 89-year-old male with Parkinson's disease who presents with family after a fall at home Vital signs not concerning. Physical exam noted above. Patient given Tylenol and ibuprofen as well as ice pack. All imaging negative. Patient alert and oriented no acute distress and pleasant. Vital signs stable. Discussed all findings with patient and family. Advised on pain control at home. Advised to follow-up with primary care physician as soon as he can to update on ED visit. Gave return precautions to the ED. Family grateful, verbalized understanding and agreed with plan of discharge. [] Dragon Disclaimer Dragon Disclaimer This electronic medical record was generated, in whole or in part, using a voice recognition dictation system. Departure Departure: Disposition: HOME / SELF CARE / HOMELESS Condition: GOOD Referrals: LATESHA FONSECA (PCP) Patient Instructions: RICE - Routine Care for Injuries Additional Instructions: Please read all the attached information very carefully for management at home. You can use Tylenol, ibuprofen and ice as discussed. Please follow-up with your primary care physician as soon as you can to update on ED visit and set up a follow-up. Please come back to the ED with new or concerning symptoms as discussed. LINNEA ALLEN MD August 26, 2020 18:56
--- NOTE | 2020-08-26 19:53 | RAD ---
Exam: CT head, cervical spine, thoracic spine and lumbar spine without contrast INDICATION: Fall, head and back pain TECHNIQUE: Sequential axial images through the head, cervical spine, thoracic spine and lumbar spine were obtained without the administration of IV contrast. Exposure: One or more of the following in the visualized dose reduction techniques were utilized for this examination: 1. Automated exposure control 2. Adjustment of the MA and/or KV according to patient size 3. Use of iterative of reconstructive technique Comparisons: 12/21/2018 FINDINGS: Head: No focal parenchymal lesion or hemorrhage is identified. There is no midline shift or sulcal effaceme nt. Patchy hypodensity in the periventricular white matter, similar to prior study. Chronic infarct at th e medial right occipital lobe. No acute vascular territory infarction is identified. Ozuna-white disti nction is preserved. The ventricular system is within normal limits without compression hydrocephalus. The basal cisterns are well maintained. The visualized portions of the paranasal sinuses and mastoid air cells are well-pneumatized. No acute fractures. Cervical spine: Straightening of cervical spine which may be positional. Vertebral body heights are well-maintained. Fracture to the cervical spine is not identified. Multilevel spondylotic change in cervical spine with degenerative disc disease greatest at C5-C6 and C6-C7. Mild bilateral facet arthropathy is also noted in the cervical spine. Visualized soft tissues are unremarkable. Thoracic spine: Vertebral body heights and alignment are well-maintained. Fracture through the thoracic spine is not identified. Multilevel spondylotic change in cervical spine with degenerative disc disease diffusely present. Strandy bibasilar airspace disease. Lumbar spine: Vertebral body heights and alignment are well-maintained. Fracture to the cervical spine is not identified. Multilevel spondylotic change in the lumbar spine with degenerative disc disease lower lumbar spine. Diffuse bilateral facet arthropathy is also noted. Visualized paraspinal soft tissues are unremarkable. IMPRESSION: 1. No acute intracranial abnormality. 2. Negative CT C-spine for acute traumatic injury. 3. Negative CT T spine for acute traumatic injury. 4. Negative CT L-spine for acute traumatic injury. Electronically signed by: Estefany Moser MD (08/26/2020 7:51 PM) [facility]
--- NOTE | 2020-08-26 22:24 | RAD ---
XR HIP (WITH OR WITHOUT PELVIS) 1 VIEW Clinical Indication: Reason: fall / Spl. Instructions: / History: Comparison: None. Findings: No acute pelvic fracture is identified. There is moderate arthropathy of the hips for patient age. Sa croiliac joints appear symmetric. There is degenerative spondylosis of the lower lumbar spine. No acu te fracture or dislocation of the hips is identified. Arterial calcifications are seen. Penile prosth esis is noted. IMPRESSION: No acute fracture. Electronically signed by: Brandon Vazquez MD (08/26/2020 10:21 PM) [facility]
[2020-08-26 23:26] VITALS: BP 109/61
[2020-08-26] MEDS ORDERED: ACETAMINOPHEN 500 MG TABLET PO ONE (23:30)
== END 2020-08-26 23:27 | disposition home or self-care (01) ==
LOC: ER 18:01
DX: M51.36 Other intervertebral disc degeneration, lumbar region (principal); M25.552 Pain in left hip; M25.551 Pain in right hip; G20 Parkinson's disease; J44.9 Chronic obstructive pulmonary disease, unspecified; K21.9 Gastro-esophageal reflux disease without esophagitis; E78.5 Hyperlipidemia, unspecified; W18.39XA Other fall on same level, initial encounter; Z23 Encounter for immunization; Z88.6 Allergy status to analgesic agent; Y93.89 Activity, other specified; Y92.89 Other specified places as the place of occurrence of the external cause; Y99.8 Other external cause status
CPT/HCPCS: 70450; 72125; 72128; 72131; 73521; 99285-25

== ENCOUNTER → 2021-07-06 | Outpatient (CLI) | payer MEDICARE ==
[~2021-07-06] MED LIST changes: -CYCL-331 PO; +CYCL10TA19 PO; -OMEP40CA45 PO; +OMEP40CA7 PO
--- NOTE | 2021-07-06 17:56 | RAD ---
Study: DG BARIUM SWALLOW Indication: Nausea. Comparison: None. Technique/Findings: Real-time fluoroscopic evaluation of the esophagus with the patient ingesting thick and thin barium w hile upright and supine. Fluoroscopy time: 1.7 minutes Fluoroscopic images/runs: 14 No hiatal hernia, stricture or fluoroscopic evidence for a mass. Mildly patulous esophagus. Weak prim johnathon stripping wave, incomplete clearance of contrast between swallows and tertiary contractions. With the patient supine active reflux was observed. Contrast refluxed and remained static up to the upper third of the esophagus in between swallows. Coughing was induced when the patient was positioned sup ine secondary to reflux. No aspiration was visualized. The partially assessed stomach and duodenum ar e unremarkable. Normally located ligament of Treitz. Pacer wires and a TAVR device noted. Impression: 1. Altered and diminished esophageal contractility with a weak primary stripping wave. Tertiary contr actions. The findings suggest longstanding reflux and reflux was also observed up to the cervical eso phagus with the patient supine. 2. No hiatal hernia, stricture or fluoroscopic evidence for a mass. Electronically signed by: HOMA BERRIOS MD (07/06/2021 5:54 PM) [id number]
== END ==
LOC: RAD 09:05
PROVIDERS: ATTEND Internal Medicine Gastroenterology
DX: K22.89 Other specified disease of esophagus (principal); R12 Heartburn; R13.10 Dysphagia, unspecified; R11.0 Nausea
CPT/HCPCS: 74220